=== PATIENT | male | born 1975 | race African-American/Black ===

== ENCOUNTER 2020-10-24 22:14 | Inpatient (IN) | payer MEDICAID, SELFPAY ==
--- NOTE | ~2020-10-24 | XR_ITS ---
EXAMINATION: XR foot LT min 3V DATE: 10/24/2020 22:34 INDICATION: Left foot pain and swelling. TECHNIQUE: 4 views of left foot were obtained. COMPARISON: Left ankle radiographs 02/19/2006 FINDINGS: Bone alignment is normal. No fracture. There is mild osteoarthritis of first metatarsophala ngeal joint and some of the midfoot joints. There are enthesophytes at the posterior and plantar aspe cts of calcaneal tuberosity. IMPRESSION: 1. Mild polyarticular osteoarthritis. Reviewed, dictated and finalized at location A.
--- NOTE | ~2020-10-24 | US_ITS ---
EXAMINATION: US retroperitoneal duplex ltd DATE: 10/27/2020 08:34 INDICATION: Hypertensive urgency. TECHNIQUE: Multiple grayscale, color Doppler, and pulsed Doppler images of the kidneys and renal krystle asa were obtained. COMPARISON: None. FINDINGS: The aorta peak systolic velocity is 91 cm/s. The right renal artery peak systolic velocity is 32 cm/s in the proximal segment, 45 cm/s in the mid segment, and 31 cm/s in the distal segment. The left vikram al artery peak systolic velocity is 89 cm/s in the proximal segment, 73 cm/s in the mid segment, and 23 cm/s in the distal segment. IMPRESSION: 1. No Doppler evidence of renal artery stenosis. Reviewed, dictated and finalized at location A.
--- NOTE | ~2020-10-24 | US_ITS ---
EXAMINATION: US renal BI EXAM DATE: 10/25/2020 14:24 INDICATION: Renal failure. TECHNIQUE: Multiple grayscale and Doppler images of the kidneys were obtained (by a technologist who performed the scan) and subsequently reviewed. There is no prior study for comparison. FINDINGS: Right kidney: There is normal contour and mildly increased echogenicity. It measures 8.9 x 4.4 x 4.9 centimeters. There are no focal renal lesions identified. There is no hydronephrosis. Left kidney: There is normal contour and mildly increased echogenicity. It measures 9.7 x 5.1 x 4.3 centimeters. Complex cystic mass in lower pole of the left kidney, possible renal cell cancer measuri ng 1.6 x 1.6 x 1.2 cm. Another complex cystic mass suspected in the superior pole of the kidney measu ring 2.5 x 2.2 x 2 point There is no hydronephrosis. Bladder unremarkable. Both ureteral jets were confirmed. IMPRESSION: 1. Two complex cystic left renal masses suspicious for renal cell cancer. Recommend CT without contr ast (given patient's renal failure). 2. Mildly increased renal echogenicity, medical renal disease. 3. No hydronephrosis. Reviewed, dictated and finalized at location A. IMPRESSION: 1. Two complex cystic left renal masses suspicious for renal cell cancer. Alec mmend CT without contrast (given patient's renal failure). 2. Mildly increased renal echogenicity, medical renal disease. 3. No hydronephrosis.
--- NOTE | ~2020-10-24 | MR_ITS ---
EXAMINATION: MR abdomen wo con DATE: 10/26/2020 09:58 INDICATION: Left kidney mass. TECHNIQUE: Magnetic resonance imaging (MRI) of the abdomen was performed without intravenous contrast . Sequences included coronal T2-weighted FS FSE, coronal and axial FIESTA FS, coronal LAVA-flex, axia l LAVA, axial T2-weighted FSE, axial T1-weighted dual-echo FSPGR, axial STIR FSE, and axial DWI. COMPARISON: Ultrasound 10/25/2020 FINDINGS: There is left ventricular hypertrophy of the heart. Cardiomegaly is noted. The liver, spleen, gallbla dder, pancreas, and adrenal glands are normal. There is a supraumbilical ventral hernia containing fa t. There are multiple masses in each kidney measuring up to 2.6 cm on the left. No hydronephrosis. Th ere are no dilated loops of bowel. There are no pathologically enlarged lymph nodes. There is no free intraperitoneal fluid. IMPRESSION: 1. Bilateral kidney masses measuring up to 2.6 cm on the left, which may be hemorrhagic cysts and/or neoplasm(s). Abdomen CT without and with contrast is recommended. 2. Cardiomegaly with left ventricular hypertrophy. Reviewed, dictated and finalized at location A. IMPRESSION: 1. Bilateral kidney masses measuring up to 2.6 cm on the left, which may be hem orrhagic cysts and/or neoplasm(s). Abdomen CT without and with contrast is ruthann mmended. 2. Cardiomegaly with left ventricular hypertrophy.
--- NOTE | ~2020-10-24 | XR_ITS ---
EXAMINATION: XR chest 2V DATE: 10/24/2020 23:02 INDICATION: Cough and shortness of breath. TECHNIQUE: Frontal and lateral views of the chest were obtained on 3 radiographs. COMPARISON: Chest 2 views 07/02/2009 FINDINGS: There is mild atelectasis in the mid and lower lung zones. No pleural effusion or pneumotho rax. Cardiomegaly is noted. IMPRESSION: 1. Mild atelectasis in the mid and lower lung zones. 2. Cardiomegaly. Reviewed, dictated and finalized at location A.
[2020-10-24 22:16] VITALS: BP 256/159; PULSE 99; RESP 18; TEMP 36.4; O2SAT 100
[2020-10-24 22:44] VITALS: BP 260/180
--- NOTE | 2020-10-24 22:46 | ECG_ITS ---
Measurements Intervals [place] Rate: 93 P: 65 VT: 170 QRS: -24 QRSD: 124 T: 144 QT: 395 QTc: 492 Interpretive Statements SINUS RHYTHM LEFT ATRIAL ENLARGEMENT INTRAVENTRICULAR CONDUCTION DELAY LEFT VENTRICULAR HYPERTROPHY AND ST-T CHANGE BORDERLINE R WAVE PROGRESSION, ANTERIOR LEADS BASELINE ARTIFACT- V1, V3-V6 BORDERLINE ECG Electronically Signed On 10-25-2020 6:19:55 CDT by Ford Reis D.O.
[2020-10-24] MEDS: SODIUM CHLORIDE 0.9% IV 1,000 ML 150 ML IV CONT (23:15)
[2020-10-24 23:37] LABS: Basophils Percent Auto 0.6 % (0.2-1.2); Eosinophils Absolute Auto 0.1 K/mm3 (0-0.3); Hematocrit 39.9 % (42.0-52.0); Hemoglobin 13.5 g/dL (14.0-18.0); Immature Granulocyte Absolute 0.01 K/mm3 (0.00-0.031); Immature Granulocyte Percent A 0.1 % (0-0.5); Lymphocytes Absolute Auto 2.26 K/mm3 (0.9-3.2); Lymphocytes Percent Auto 31.7 % (18.3-44.2); Mean Corpuscular HGB Conc 33.8 g/dl (32-36); Mean Corpuscular Hemoglobin 30.1 pg (26-34); Mean Corpuscular Volume 89.1 fl (80-100); Mean Platelet Volume 11.7 fl (7.4-10.4); Monocytes Absolute Auto 0.4 K/mm3 (0.1-0.6); Monocytes Percent Auto 5.5 % (2.6-8.5); Neutrophils Absolute Auto 4.3 K/mm3 (1.3-6.7); Neutrophils Percent Auto 60.1 % (45.5-73.1); Platelet Count Result 223 k/mm3 (150-375); Red Blood Count 4.48 M/mm3 (4.6-6.20); Red Cell Distribution Width 14.7 % (11.5-14.5); White Blood Count 7.1 K/mm3 (4.5-10.0)
[2020-10-24] MEDS: LABETALOL HCL INJ 100 MG/20 ML VIAL 20 MG IV PUSH (23:54)
[2020-10-24 23:55] VITALS: BP 246/173; PULSE 89; RESP 25; O2SAT 98
[2020-10-25] VITALS (19 sets, daily range): BP systolic 183–213; BP diastolic 102–145; PULSE 63–91; RESP 15–23; TEMP 36.3–37.2; O2SAT 97–100; BMI 27.3
--- NOTE | 2020-10-25 | ECHO_ITS ---
Patient Info Name: Jason Whiteside Age: 45 years : 1975 Gender: Male Ht: 73 in Wt: 245 lbs BSA: 2.42 m2 HR: 67 bpm BP: 204 / 120 mmHg Heart Rhythm: Sinus Rhythm Technical Quality: Good Exam Date: 10/25/2020 10:54 AM Exam Location: [facility] Card Pulmonary Patient Status: Emergency Admit Date: 10/24/2020 Staff Ordering Physician: Keith Anderson MD Office Rn: Kay Hernadez RDCS Attending Provider: Remy Shaver MD Referring Physician: Justin CORREIA; Exam Type: CA echo doppler color flow Study Info Indications I10 - Essential (primary) hypertension Complete two-dimensional, color flow and Doppler transthoracic echocardiogram is performed. Summary 1. Complete two-dimensional, color flow and Doppler transthoracic echocardiogram is performed. 2. Left ventricular chamber dimension is moderately enlarged. 3. Left ventricular systolic function is moderately reduced, estimated at 40-45%. 4. There is moderately increased left ventricular wall thickness. 5. The left ventricular diastolic function is grade III diastolic dysfunction. 6. Left atrial chamber dimension is severely enlarged. 7. Right atrial chamber dimension is moderately enlarged. 8. Mild pulmonary hypertension, estimated pulmonary arterial systolic pressure is 42 mmHg. Left Ventricle Left ventricular chamber dimension is moderately enlarged. Left ventricular systolic function is moderately reduced, estimated at 40-45%. There is moderately increased left ventricular wall thickness. The left ventricular diastolic function is grade III diastolic dysfunction. Global longitudinal strain is moderately elevated at -7 %. Right Ventricle Right ventricular chamber dimension is normal. Right ventricular systolic function is normal. Left Atria Left atrial chamber dimension is severely enlarged. Right Atria Right atrial chamber dimension is moderately enlarged. Aortic Valve The aortic valve is trileaflet. There is no aortic valve stenosis. There is no aortic valve regurgitation. Pulmonic Valve The pulmonic valve is normal. There is mild pulmonic regurgitation. Mitral Valve The mitral valve has normal leaflets. There is mild mitral valve regurgitation. Tricuspid Valve The tricuspid valve leaflets are normal. There is mild tricuspid valve regurgitation. Mild pulmonary hypertension, estimated pulmonary arterial systolic pressure is 42 mmHg. Pericardium/Pleural The pericardium appears normal. There is trivial pericardial effusion. Inferior Vena Cava Normal inferior vena cava with >50% collapse upon inspiration consistent with normal right atrial pressure, 5 mmHg. Aorta The aortic root size at the sinus of Valsalva is normal. Left Ventricular Outflow Tract Name Value Normal LVOT 2D LVOT Diameter 2.3 cm LVOT Doppler LVOT Peak Velocity 115 cm/s LVOT Peak Gradient 5 mmHg LVOT Mean Gradient 3 mmHg LVOT VTI 21 cm LVOT VTI/AV VTI Ratio 0.9 LVOT Stroke Volume
[2020-10-25] MEDS: HYDROcodone/acetaminophen (*CRX) 5-325 MG TABLET 1 TAB PO ×3 (00:01→08:24)
[2020-10-25 00:05] LABS: Alanine Aminotransferase 25 U/L (4-50); Albumin Level 4.1 g/dL (3.5-5.1); Alkaline Phosphatase 98 U/L (38-126); Anion Gap 6 mmol/L (8-16); Aspartate Amino Transferase 31 U/L (17-59); Bilirubin,Total 0.5 mg/dL (0.2-1.3); Blood Urea Nitrogen 35 mg/dL (9-20); Calcium 9.3 mg/dL (8.4-10.2); Carbon Dioxide 21 mmol/L (22-30); Chloride 112 mmol/L (98-107); Estimated Glomerular Filt Rate 27; Glucose 118 mg/dL (75-110); Potassium 4.2 mmol/L (3.4-5.0); Sodium 139 mmol/L (137-145)
--- NOTE | 2020-10-25 00:05 | ED.LOWEXIN ---
HPI - Extremity Injury (Lower) General Chief Complaint: Extremity Injury, Lower Stated Complaint: left foot swelling and pain Time Seen by Provider: 10/24/20 22:42 Source: patient Mode of arrival: ambulatory Limitations: no limitations History of Present Illness HPI Narrative: 45-year-old male Presents complaining of severe pain in his left big toe which began yesterday No history of injury and no prior similar episodes Extremely painful to try to walk Incidentally noticed at triage was a blood pressure of 260/160 On review of the chart there is a long history going back 10+ years of numerous visits to the ED for issues related to hypertension However he has not been very compulsive about following up with primary care and treating his blood pressure and currently takes no medications Remarkably he is completely asymptomatic and denies any headaches visual symptoms chest pain shortness of breath weakness swelling etc. Related Data Home Medications Medication Instructions Recorded Confirmed No Home Medications 10/24/20 10/24/20 Allergies Allergy/AdvReac Type Severity Reaction Status Date / Time No Known Allergies Allergy Verified 10/24/20 22:21 Review of Systems Review of Systems: All systems reviewed & are unremarkable except as noted in HPI and below Constitutional: Constitutional: Reports no additional constitutional complaints, Denies chills, Denies fever(s) and Denies headache(s) Eyes: Eyes: Reports no additional eye complaints and Denies change in vision ENT: Denies dysphagia, Denies dizziness, Denies headache(s) and Denies sore throat Cardiovascular: Cardiovascular: Denies chest pain and Denies dyspnea Respiratory: Respiratory: Denies cough and Denies dyspnea Gastrointestinal: Gastrointestinal: Denies abdominal pain, Denies diarrhea, Denies nausea and Denies vomiting Genitourinary: Genitourinary: Denies dysuria and Denies urinary frequency Musculoskeletal: Musculoskeletal: Denies deformity, Reports arthralgias, Reports joint swelling and Denies numbness Integumentary/Breasts: Skin/Breast: Denies rash and Denies wounds Neurologic: Denies headache(s), Denies focal weakness and Denies numbness Psychiatric: Psychiatric: Reports no additional psychiatric complaints Endocrine: Endocrine: Reports no additional endocrine complaints Hematologic/Lymphatic: Hematologic/Lymphatic: Reports no additional hematologic/lymphatic complaints Allergic/Immunologic: Allergic/Immunologic: Reports no additional allergic/immunologic complaints Exam Const: General: cooperative, no acute distress and alert Orientation/consciousness: patient oriented x3 (alert) HENMT: Head: normal to inspection, normocephalic, atraumatic, no contusions and no hematomas Ears: external ears normal General nose exam: no epistaxis Eyes: Conjunctivae: conjunctivae normal Pupils: Equal, round and reactive pupils present EOM: EOMs intact bilaterally Neck: Neck: normal visual inspection, no meningeal signs, supple and no JVD Other: Supple Resp: Effort & Inspection: normal respiratory effort and not labored Auscultation: clear to auscultation bilaterally and other (BS =) Cardio: Rate: regular rate Rhythm: regular rhythm Heart sounds: no murmurs GI: GI Palp: Yes Soft to palpation and No Tenderness to palpation present (GI) Skin: General skin exam: normal color and no rashes or lesions noted Neuro: General: patient oriented x3 (alert) and moves all extremities Speech: normal speech Extrem: Other: Left first MTP swollen, erythematous, tender, consistent with gout Psych: Affect: normal affect Course Course Emergency Course: His extreme hypertension will have to be slowly corrected and he received labetalol twice with resulting systolic blood pressures in the 200-220 range His gouty toe felt better after [place] and steroids Discussed with hospitalist for admission Vital Signs Vital signs: Vital Signs Temperature
[2020-10-25 00:13] LABS: NT Pro B Type Natriuretic Pept 9450 pg/mL (5-100)
[2020-10-25 00:14] LABS: Uric Acid 8.6 mg/dL (3.5-8.5)
--- NOTE | 2020-10-25 00:38 | PM.IMHP ---
H&P: HPI History of Present Illness Date/Time: 10/25/20 00:38 Chief Complaint: LEFT TOE PAIN Narrative: THIS IS A 45-YEAR-OLD MALE WITH PAST MEDICAL HISTORY SIGNIFICANT FOR UNCONTROLLED MALIGNANT HYPERTENSION PATIENT IS ON NO TREATMENT AT HOME HISTORY OF NONCOMPLIANCE. PATIENT PRESENTED TODAY TO THE EMERGENCY ROOM DUE TO LEFT TOE PAIN AT THE LEVEL OF THE 1ST METATARSAL PHALANGEAL JOINT PATIENT STATES THAT IT HAS BEEN THERE FOR 1 DAY IS EXTREMELY PAINFUL TO THE TOUCH. PATIENT DENIES ANY DISCHARGE ANY OPEN WOUNDS. PATIENT WAS FOUND TO HAVE A SYSTOLIC BLOOD PRESSURE OF 260 OVER 180. PATIENT DENIES ANY CHEST PAIN SHORTNESS OF BREATH HEADACHES OR BLURRY VISION NAUSEA VOMITING ABDOMINAL PAIN NO FEVERS NO RIGORS NO CHILLS NO COUGH NO SPUTUM PRODUCTION NO PND NO ORTHOPNEA NO CLAUDICATION. PRELIMINARY WORKUP WAS SIGNIFICANT FOR FOOT X-RAY NO FRACTURES. A CHEST X-RAY WITH PROMINENT AORTIC NOTCH. PATIENT RECEIVED LABETALOL IN THE EMERGENCY ROOM WITH A SLIGHT IMPROVEMENT OF HIS BLOOD PRESSURE. Review of Systems Review of Systems: Narrative: PATIENT PRESENTED TO THE EMERGENCY ROOM DUE TO TENDERNESS OF THE FAIRS METATARSAL PHALANGEAL JOINT OF THE LEFT FOOT Constitutional: Constitutional: Denies chills, Denies fatigue, Denies fever(s), Denies malaise and Denies weakness Eyes: Eyes: Denies blurry vision and Denies diplopia ENT: Denies vertigo, Denies dizziness, Denies nasal congestion and Denies nasal discharge Cardiovascular: Cardiovascular: Denies chest pain, Denies edema, Denies irregular heart rhythm, Denies claudication, Denies leg edema and Denies palpitations Respiratory: Respiratory: Denies cough and Denies dyspnea Gastrointestinal: Gastrointestinal: Denies abdominal pain and Denies vomiting Genitourinary: Genitourinary: Denies dysuria Musculoskeletal: Musculoskeletal: Reports arthralgias, Reports joint swelling and Reports limited range of motion Comments: 1ST METATARSAL PHALANGEAL JOINT OF THE LEFT FOOT Integumentary/Breasts: Skin/Breast: Denies rash Neurologic: Denies vertigo, Denies dizziness, Denies focal weakness, Denies Other visual disturbances and Denies Sensory deficit (Neuro) Psychiatric: Psychiatric: Denies no additional psychiatric complaints Endocrine: Endocrine: Reports no additional endocrine complaints Hematologic/Lymphatic: Hematologic/Lymphatic: Reports no additional hematologic/lymphatic complaints Allergic/Immunologic: Allergic/Immunologic: Reports no additional allergic/immunologic complaints Meds Home Medications and Allergies Home Medications Medication Instructions Recorded Confirmed Type No Home Medications 10/24/20 10/24/20 History Allergies Allergy/AdvReac Type Severity Reaction Status Date / Time No Known Allergies Allergy Verified 10/24/20 22:21 Vital Signs Vital Signs - 24 hr 10/24/20 22:16 10/24/20 22:44 10/24/20 23:55 Temperature 97.5 F L Pulse Rate 99 89 Respiratory Rate 18 25 H Blood Pressure 256/159 H 260/180 H 246/173 H Pulse Oximetry 100 98 Exam Narrative: Exam Narrative: SITTING IN [facility] [place] Const: General: comfortable, no acute distress, well developed, alert, awake and Physically active Nutritional Appearance: average body habitus Orientation/consciousness: patient oriented x3 HENMT: Head: normal to inspection, normocephalic and atraumatic Ears: hearing grossly normal bilaterally Face and sinus: normal facial exam Eyes: General: appearance normal, both eyes and all related structures Pupils: Equal, round and reactive pupils present EOM: EOMs intact bilaterally Neck: Neck: full ROM, no lymphadenopathy and no JVD Thyroid: thyroid normal Lymphatic: no lymphadenopathy noted Resp: Effort & Inspection: normal respiratory effort and able to speak in complete sentences Auscultation: clear to auscultation bilaterally Cardio: Jugular venous distension: no JVD Rate: regular rate Rhythm: regular rhythm Heart sounds: S1 normal heart sound present and S2
[2020-10-25] MEDS: LABETALOL HCL INJ 100 MG/20 ML VIAL 40 MG IV PUSH (00:51)
--- NOTE | 2020-10-25 01:15 | PC.NURSE ---
Pt unable to provide urine sample, states I've been trying for a while, but I cant go . Pt refused straight catheter, urinal at bedside.
[2020-10-25 01:55] LABS: Add Urine Microscopic? YES; Appearance Urine Clear (Clear); Bacteria Urine Trace /hpf; Bilirubin Urine Negative (Negative); Blood Urine Negative (Negative); Color Urine Yellow (Yellow); Glucose Urine UA Negative (Negative); Ketones Urine Negative (Negative); Leukocyte Esterase Ur Trace LEU/UL (Negative); Nitrate Urine Negative (Negative); Protein Urine 3+ mg/dL (Negative); RBC Urine 0-2 /hpf (0-2); Specific Grav Ur 1.014 (1.001-1.035); Squamous Epithelial Cell Urine Rare /hpf (Few); Urobilinogen Urine Negative mg/dL (<2.0); WBC Urine 16-20 /hpf
[2020-10-25] MEDS: hydrALAZINE HCL 20 MG/ML VIAL IV PUSH ×2 (02:21→23:30)
--- NOTE | 2020-10-25 06:27 | ADMGEN ---
This patient, Jason Whiteside III, was admitted to IMU Room 200-01. Patient/family oriented to hospital policies and general routines including ID bracelet, bed and alarms, visiting hours, pain management, procedures, bathroom and other care routines, personal items, smoking policy, room service/diet, and visiting hours. Information on how to activate the Rapid Response Team has been discussed. Patient/Family are encouraged to report perceived risks to care and to ask questions if they do not understand what they are told or what they should do.
[2020-10-25 09:26] LABS: Anion Gap 7 mmol/L (8-16); Blood Urea Nitrogen 32 mg/dL (9-20); Calcium 9.6 mg/dL (8.4-10.2); Carbon Dioxide 19 mmol/L (22-30); Chloride 112 mmol/L (98-107); Estimated CRCL calculation 36 ml/min; Estimated Glomerular Filt Rate 31; Glucose 134 mg/dL (75-110); Potassium 4.2 mmol/L (3.4-5.0); Sodium 138 mmol/L (137-145)
[2020-10-25] MEDS: predniSONE 20 MG TABLET 40 MG PO (09:43)
[2020-10-25] MEDS: amLODIPine BESYLATE 5 MG TABLET PO ×2 (09:43→16:59)
--- NOTE | 2020-10-25 11:04 | PM.IMPN ---
Progress Note: A&P Assessment and Plan (1) Hypertensive urgency, malignant: Code(s): I16.0 - Hypertensive urgency Status: Acute Assessment and Plan: He has not been on antihypertensives in many years. He is asymptomatic at this time. No evidence of end-organ dysfunction. BP as high as 260/180 at presentation. Improved at appropriate rate following labetalol administration. Last BP 186/102. Begin amlodipine 5 mg. Up titrate based on results IV hydralazine as needed for systolic BP greater than or equal to 200. Monitor blood pressure closely with cautious normalization (2) Acute on chronic kidney failure: Code(s): N17.9 - Acute kidney failure, unspecified; N18.9 - Chronic kidney disease, unspecified Status: Acute Assessment and Plan: Reports history of kidney disease but cannot recall specifics. Baseline renal function is unclear. Creatinine 3.1 at presentation. Likely secondary to uncontrolled hypertension. Renal ultrasound ordered with results pending Nephrology has been consulted and input is appreciated. Monitor renal function closely. Renally dose medications and avoid nephrotoxic agents. (3) Gout: Code(s): M10.9 - Gout, unspecified Status: Acute Assessment and Plan: Left 2nd toe. Uric acid elevated at 8.6. Received IV dexamethasone in ED. Begin 40 mg prednisone taper over 1 week. Analgesics available as needed Plan to initiate uric acid lowering agent following acute flare (4) Elevated brain natriuretic peptide (BNP) level: Code(s): R79.89 - Other specified abnormal findings of blood chemistry Status: Acute Assessment and Plan: BNP elevated at 9450. Cardiomegaly noted on CXR. He is asymptomatic. Echocardiogram ordered and is pending (5) Elevated fasting glucose: Code(s): R73.01 - Impaired fasting glucose Status: Acute Assessment and Plan: Glucose elevated at 134. He endorses polydipsia and polyuria. He has not had his blood sugar checked in many years. Check A1c (6) Abnormal urinalysis: Code(s): R82.90 - Unspecified abnormal findings in urine Status: Acute Assessment and Plan: UA at presentation was slightly abnormal. He is asymptomatic. No leukocytosis or fever. Doubt acute infection. Urine culture pending. Await results Will hold off on antibiotics until results available Subjective Date/time seen: 10/25/20 11:04 Interval history: Date of service: 10/25/2020 Jason Whiteside is a 45-year-old male with history of untreated hypertension who is seen in follow-up for hypertensive urgency and gout flare. He reports he is feeling better today. His complain of pain in his left 2nd toe that he rates as 6/10. Pain is at first sharp and then throbs. He notes that this has improved since admission. He has difficulty bearing weight on that foot, and notes that his left foot seems a bit swollen compared to his right foot. He denies nausea, vomiting, fever, or chills. He has no headache. No visual changes. No shortness of breath, chest pain, or palpitations. Denies abdominal pain. He denies dysuria or hematuria. He does note that he urinates very frequently and often wakes up in the middle of the night to urinate. He also endorses polydipsia. No lightheadedness or dizziness. He has been able to ambulate without difficulty with the exception of some left foot pain. Review of Systems Review of Systems: All systems reviewed & are unremarkable except as noted in HPI and below Exam Narrative: Exam Narrative: Mr. Whiteside is well-nourished, well-appearing 45-year-old male who is lying supine in bed. He appears comfortable and is in NARD. Neuro: awake, alert and oriented x4, speech clear, no focal neuro deficits noted HEENMT: normocephalic, atraumatic, EOMI, sclerae anicteric, moist oral mucosa, tongue midline, nares patent Neck: supple, no lymphadenopathy
[2020-10-25 11:54] LABS: Hemoglobin A1C 5.3 % (<5.7)
--- NOTE | 2020-10-25 16:11 | PM.CNNEP ---
Assessment and Plan Assessment and plan (1) Abnormal results of kidney function studies: Code(s): R94.4 - Abnormal results of kidney function studies Status: Acute Assessment and Plan: the patient has a high BUN and creatinine. He could have Different scenarios. He has had hypertension for a few years. His ultrasound does show small kidneys and some echogenicity. So I suspect that he does have chronic kidney disease on the basis of hypertension. There are other causes of elevated creatinine as well including inflammation, infiltrative diseases, obstruction etc. He had an ultrasound which did not show obstruction. Will check serology and immunofixation to rule out other less likely causes of kidney disease. The patient may or may not have superimposed acute kidney injury. He could have acute hypertensive nephropathy from his severely high blood pressure. If so then bring his blood pressure down may result in a lower creatinine eventually. I do not want to bring it down too low because he probably does have some this auto regulation and too low a blood pressure might result in a pre renal state worsening his creatinine. (2) Hypertensive urgency, malignant: Code(s): I16.0 - Hypertensive urgency Status: Acute Assessment and Plan: the patient had very high blood pressure in the ER. This has come down some. He is currently on amlodipine and p.r.n. hydralazine. He was given labetalol as well in the emergency room. Will add carvedilol as well. (3) Gout: Code(s): M10.9 - Gout, unspecified Status: Acute Assessment and Plan: He is getting prednisone now. His uric acid is very high. (4) Elevated fasting glucose: Code(s): R73.01 - Impaired fasting glucose Status: Acute Assessment and Plan: His glucose is high. This was before he started the steroids. History of Present Illness Reason for Consult Consult date: 10/25/20 Chief Complaint Chief complaint: severe HTN, CKD, Gout History of Present Illness Narrative: Jason is a very pleasant 45-year-old gentleman who has hypertension. He says he was diagnosed somewhere between 5 and [address] Pablo. He was given antihypertensives. The patient did not feel good on the medication so he stopped the pills and has not been on any medicines for the last few years. He has not had his blood pressure taken since then. Patient says he came down with left foot pain a couple of days ago. He took Tylenol for this but it did not help in his foot became more so decided to come to the emergency room. He was evaluated in the ER and found to have a very high blood pressure. His creatinine was high. He was given antihypertensives. He was admitted to the floor. The patient denies any chest pain or shortness of breath. He has been tired for the last few weeks. He has not had any bloody urine, foamy urine, kidney stones, or bladder infections. No pain with urination. He has not been taking any Advil Aleve ibuprofen or Motrin lately. He says he takes an occasional pill but has not had 1 in a few weeks. He smokes cigarettes and rarely drinks. Review of Systems Constitutional: Constitutional: Reports no additional constitutional complaints Eyes: Eyes: Reports no additional eye complaints ENT: Reports system reviewed and no additional complaints, except as documented Cardiovascular: Cardiovascular: Reports no additional cardiovascular complaints Respiratory: Respiratory: Reports no additional respiratory complaints Gastrointestinal: Gastrointestinal: Reports no additional gastrointestinal complaints Genitourinary: Genitourinary: Reports no additional male genitourinary complaints Musculoskeletal: Musculoskeletal: Reports no additional musculoskeletal complaints Integumentary/Breasts: Skin/Breast: Reports system reviewed and no additional complaints, except as docu Neurologic
[2020-10-25 16:46] LABS: Creatine Kinase 62 U/L (55-170)
[2020-10-25 16:54] LABS: Complement C3 109 mg/dL (88-165)
[2020-10-25 18:09] LABS: Eosinophil Urine None Seen % (None Seen)
[2020-10-25 19:06] LABS: Creatinine Urine 109.9 mg/dL; Total Protein Urine Random 81 mg/dL; Ur Ttl Prot Creatinine Ratio 0.74 mg/mg (0-0.20)
[2020-10-25 19:07] LABS: Sodium Urine Random 53 meq/L
[2020-10-25 19:11] LABS: Creatinine Urine 112.3 mg/dL
[2020-10-25 19:13] LABS: Sodium Urine Random 54 meq/L
[2020-10-25] MEDS: carvediloL 12.5 MG TABLET PO (19:55)
[2020-10-26] VITALS (16 sets, daily range): BP systolic 160–210; BP diastolic 93–117; PULSE 62–89; RESP 12–20; TEMP 36.6–36.9; O2SAT 95–100
[2020-10-26 05:19] LABS: Hematocrit 35.9 % (42.0-52.0); Hemoglobin 12.6 g/dL (14.0-18.0); Mean Corpuscular HGB Conc 35.1 g/dl (32-36); Mean Corpuscular Hemoglobin 30.1 pg (26-34); Mean Corpuscular Volume 85.9 fl (80-100); Mean Platelet Volume 11.7 fl (7.4-10.4); Platelet Count Result 211 k/mm3 (150-375); Red Blood Count 4.18 M/mm3 (4.6-6.20); Red Cell Distribution Width 14.2 % (11.5-14.5); White Blood Count 9.8 K/mm3 (4.5-10.0)
[2020-10-26 05:32] LABS: Albumin Level 3.6 g/dL (3.5-5.1); Anion Gap 6 mmol/L (8-16); Blood Urea Nitrogen 32 mg/dL (9-20); Calcium 9.3 mg/dL (8.4-10.2); Carbon Dioxide 20 mmol/L (22-30); Chloride 110 mmol/L (98-107); Estimated CRCL calculation 39 ml/min; Estimated Glomerular Filt Rate 34; Glucose 113 mg/dL (75-110); Phosphorus 3.3 mg/dL (2.5-4.5); Potassium 4.3 mmol/L (3.4-5.0); Sodium 136 mmol/L (137-145)
[2020-10-26] MEDS: hydrALAZINE HCL 20 MG/ML VIAL IV PUSH (06:31)
[2020-10-26] MEDS: cloNIDine HCL 0.1 MG TABLET PO ×3 (06:31→17:46)
--- NOTE | 2020-10-26 07:19 | PM.PNNEP ---
Progress Note: A&P Assessment and Plan (1) Abnormal results of kidney function studies: Code(s): R94.4 - Abnormal results of kidney function studies Status: Acute Assessment and Plan: the patient has a high BUN and creatinine. Acute versus chronic versus acute on chronic. He probably has some chronic kidney disease. Renal ultrasound shows smallish kidneys and increased echogenicity consistent with this. Serology is pending (c3,c4 okay) Immunofixation are pending Etiology most likely hypertension. He may have acute on chronic as well. Urine eosinophils are negative. Urine electrolytes are non pre renal CPK is normal Will follow the creatinine as we improve his blood pressure. (2) Hypertensive urgency, malignant: Code(s): I16.0 - Hypertensive urgency Status: Acute Assessment and Plan: the patient had very high blood pressure in the ER. This has come down some. He is on amlodipine and carvedilol. His blood pressure was high again this morning. He had a dose of hydralazine for this high blood pressure but did not do much. Will change amlodipine to nifedipine which is stronger. Will also add clonidine. We should not mix clonidine and beta-blockers as an outpatient because of risk of withdrawal however in the hospital will use the clonidine as a temporizing agent into we get him on a better long-term regimen for blood pressure. Will check a TSH, parathyroid hormone, renin, and aldosterone. We can also check a renal arterial Doppler. (3) Gout: Code(s): M10.9 - Gout, unspecified Status: Acute Assessment and Plan: He is getting prednisone now. He feels much better. Will start allopurinol. His uric acid is very high. (4) Elevated fasting glucose: Code(s): R73.01 - Impaired fasting glucose Status: Acute Assessment and Plan: His glucose is high. This was before he started the steroids. Subjective Date/time seen: 10/26/20 07:19 Interval history: Jason is feeling okay today. He slept well last night. He denies chest pain shortness of breath or headache. Review of Systems Cardiovascular: Cardiovascular: Reports no additional cardiovascular complaints Respiratory: Respiratory: Reports no additional respiratory complaints Gastrointestinal: Gastrointestinal: Reports no additional gastrointestinal complaints Genitourinary: Genitourinary: Reports no additional male genitourinary complaints Exam Narrative: Exam Narrative: WDWN in NAD skin no rash head ncat lungs clear cor reg no rub abd BS+ nontender and soft ext no edema. Objective Data Vital Signs Vital Signs: Vital Signs - 24 hr 10/25/20 08:00 10/25/20 10:00 10/25/20 11:06 Temperature 36.6 C Pulse Rate 74 74 70 Respiratory Rate 16 18 Blood Pressure 186/102 H Pulse Oximetry 97 100 10/25/20 12:00 10/25/20 14:00 10/25/20 16:00 Temperature 37.2 C 36.3 C L Pulse Rate 77 72 73 Respiratory Rate 16 16 Blood Pressure 192/123 H 193/124 H Pulse Oximetry 99 99 10/25/20 18:00 10/25/20 19:47 10/25/20 19:55 Temperature 36.6 C Pulse Rate 63 81 83 Respiratory Rate 20 Blood Pressure 195/109 H Pulse Oximetry 98 10/25/20 20:00 10/25/20 22:00 10/25/20 23:29 Temperature 36.6 C Pulse Rate 65 91 86 Respiratory Rate 20 Blood Pressure 210/123 H Pulse Oximetry 98 10/26/20 00:00 10/26/20 02:00 10/26/20 04:00 Temperature 36.6 C Pulse Rate 89 77 86 Respiratory Rate 20 Blood Pressure 210/117 H Pulse Oximetry 97 10/26/20 06:00 Temperature Pulse Rate 79 Respiratory Rate Blood Pressure Pulse Oximetry Intake/Output Intake/Output: Intake & Output 10/23/20 10/24/20 10/25/20 10/26/20 23:59 23:59 23:59 23:59 Intake Total 880 350 Output Total 300 850 Balance 580 -500 Meds/Results Medications: Active Medications Generic Name Dose Route Start Last Admin Trade Name Freq PRN Reason S
[2020-10-26] MEDS: carvediloL 12.5 MG TABLET PO ×2 (08:25→20:17)
[2020-10-26] MEDS: NIFEdipine 30 MG TAB.ER.24 60 MG PO (08:25)
[2020-10-26] MEDS: predniSONE 20 MG TABLET 40 MG PO (08:26)
[2020-10-26 08:33] LABS: Parathyroid Intact 168.9 pg/mL (7.5-53.5)
[2020-10-26 09:30] LABS: Thyroid Stimulating Hormone Reflex 0.941 uIU/mL (0.465-4.68)
--- NOTE | 2020-10-26 11:39 | PM.IMPN ---
Progress Note: A&P Assessment and Plan (1) Hypertensive urgency, malignant: Code(s): I16.0 - Hypertensive urgency Status: Acute Assessment and Plan: He has not been on antihypertensives in many years. He is asymptomatic at this time. No evidence of end-organ dysfunction. BP as high as 260/180 at presentation. Improving at appropriate rate. Last BP 175/96. He has been started on carvedilol, nifedipine, and clonidine which will only be continued during his inpatient stay IV hydralazine as needed for systolic BP greater than or equal to 200. Will order renal duplex US arterial doppler Monitor blood pressure closely with cautious normalization (2) Acute on chronic kidney failure: Code(s): N17.9 - Acute kidney failure, unspecified; N18.9 - Chronic kidney disease, unspecified Status: Acute Assessment and Plan: Reports history of kidney disease but cannot recall specifics. Baseline renal function is unclear. Creatinine 3.1 at presentation. Likely secondary to uncontrolled hypertension. Renal US reviewed. Cr improved at 2.5 today Nephrology has been consulted and input is appreciated. Serology and immunofixation workup pending Monitor renal function closely. Renally dose medications and avoid nephrotoxic agents. (3) Bilateral renal cysts: Code(s): N28.1 - Cyst of kidney, acquired Status: Acute Assessment and Plan: Renal ultrasound with 2 complex cystic left renal masses concerning for renal cell cancer. Abdominal MRI showed bilateral kidney masses measuring up to 2.6 cm on left. Recommendation for follow-up CT without and with contrast; cannot receive contrast at this time given BETTIE Consult to Urology. Input appreciated (4) Gout: Code(s): M10.9 - Gout, unspecified Status: Acute Assessment and Plan: Left 2nd toe. Uric acid elevated at 8.6. Received IV dexamethasone in ED. Continue 40 mg prednisone taper over 1 week. Analgesics available as needed Plan to initiate uric acid lowering agent following acute flare (5) HFrEF (heart failure with reduced ejection fraction): Code(s): I50.20 - Unspecified systolic (congestive) heart failure Status: Acute Assessment and Plan: BNP elevated at 9450. Cardiomegaly noted on CXR and MRI. Echocardiogram with moderately reduced EF 40-45% with increased LV wall thickness and grade III diastolic dysfunction. He remains asymptomatic. Appears euvolemic at this time. Monitor clinically He has been started on carvedilol as above Would not initiate any diuretics, KELY/ARB at this time given BETTIE Case reviewed with on-call political scientist. At this time, it is appropriate to establish outpatient follow up with cardiology. Will consider cardiology consultation as an inpatient should he develop any acute symptoms. (6) Elevated fasting glucose: Code(s): R73.01 - Impaired fasting glucose Status: Acute Assessment and Plan: Glucose elevated at presentation, prior to receiving steroids, and he endorsed polydipsia and polyuria. A1c is 5.3. No further workup warranted. He is on steroids which may cause hyperglycemia, however short taper is planned. (7) Abnormal urinalysis: Code(s): R82.90 - Unspecified abnormal findings in urine Status: Acute Assessment and Plan: UA at presentation was slightly abnormal. He is asymptomatic. No leukocytosis or fever. Urine culture negative. No further intervention at this time. Subjective Date/time seen: 10/26/20 11:39 Interval history: Date of service: 10/26/2020 Jason Whiteside is a 45-year-old male with history of untreated hypertension who is seen in follow-up for hypertensive urgency and gout flare. He is feeling well today. His left toe pain has improved. He reports much less sensitivity. He still has pain with walking. He denies headache. No dizziness or lightheadedness. Denies shortness of sabi
--- NOTE | 2020-10-26 15:26 | WPDURCON ---
Assessment and Plan Assessment and plan (1) Bilateral renal cysts: Code(s): N28.1 - Cyst of kidney, acquired Status: Acute Assessment and Plan: Will need to evaluate further with a CT abdomen/pelvis with and without contrast if creatinine can normalize. Will watch labs over the next few days and order if creatinine decreases. I will discuss case with Dr. Landers to determine if an MRI with and without contrast will be helpful in identifying the masses. No further evaluation at this time, this poses no urgent risk to the patient and is not contributing to the elevated creatinine. Urology Consult Note HPI Date Seen: 10/26/20 Requesting Physician: Christa Orr PA-C Primary Care Provider: [employer] SALESPERSON PHYSICIAN Consult Narrative Narrative: Jason Whiteside III is a 45 year old male who presented initially to the ER on 10/25/2020 for acute onset of left great toe pain and unknown hypertension. He was admitted for evaluation of acute renal failure and hypertion as well as pain management for gout. Upon OPAL of his kidneys ordered by nephrology to rule out an obstruction causing his creatinine to be 2.5, incidentally they found 2 complex left renal masses suspicious for renal cell carcinoma without obstruction. A CT was then done without contrast to further evaluate since he cannot have contrast d/t the BETTIE, which noted them as cysts measuring up to 2.6cm in size, recommending further evaluation with contrast when possible. His WBC is 9.8, and he denies any history of urinary problems or hematuria. We were asked to evaluate the masses. Review of Systems Cardiovascular: Cardiovascular: Denies chest pain Respiratory: Respiratory: Reports no additional respiratory complaints Gastrointestinal: Gastrointestinal: Denies nausea and Denies vomiting Genitourinary: Genitourinary: Denies hematuria, Denies dysuria, Denies flank pain, Denies urinary frequency and Denies urinary hesitancy [facility] Past Medical History Medical History Abnormal results of kidney function studies Chronic kidney disease (CKD) Hypertension Family History Family History Mother Hypertension Social History Social History Smoking packs per day: 1 Smoking cigarettes per day: 20.0 Years smoked: 15 Smoking pack-years: 15.00 Smoking status: Current every day smoker Alcohol intake: never Substance use: never Gender identity (if verbalized by the patient): Male Sexual Orientation (if Verbalized by the Patient): Straight or Heterosexual Spiritual care concerns: No Meds Home Medications and Allergies Home Medications Medication Instructions Recorded Confirmed Type No Home Medications 10/24/20 10/24/20 History Allergies Allergy/AdvReac Type Severity Reaction Status Date / Time No Known Allergies Allergy Verified 10/24/20 22:21 Vital Signs Vital Signs - 24 hr 10/25/20 16:00 10/25/20 18:00 10/25/20 19:47 Temperature 97.4 F L 97.9 F Pulse Rate 73 63 81 Respiratory Rate 16 20 Blood Pressure 193/124 H 195/109 H Pulse Oximetry 99 98 10/25/20 19:55 10/25/20 20:00 10/25/20 22:00 Temperature Pulse Rate 83 65 91 Respiratory Rate Blood Pressure Pulse Oximetry 10/25/20 23:29 10/26/20 00:00 10/26/20 02:00 Temperature 97.9 F Pulse Rate 86 89 77 Respiratory Rate 20 Blood Pressure 210/123 H Pulse Oximetry 98 10/26/20 04:00 10/26/20 06:00 10/26/20 08:00 Temperature 97.9 F 97.9 F Pulse Rate 86 79 65 Respiratory Rate 20 12 Blood Pressure 210/117 H 186/95 H Pulse Oximetry 97 98 10/26/20 08:25 10/26/20 10:00 10/26/20 11:10 Temperature 98.3 F Pulse Rate 73 69 71 Respiratory Rate 12 Blood Pressure 175/96 H Pulse Oximetry 100 10/26/20 12:00 10/26/20 14:00 Temperature Pulse Rate 89 67 Respi
--- NOTE | 2020-10-26 20:11 | PC.NURSE ---
Jason Wihteside III was transferred from 2nd medial to 3rd med/ surg floor, room 301 @1945. Patient is oriented to room and resting in bed with call light within reach.
[2020-10-27] VITALS (9 sets, daily range): BP systolic 155–170; BP diastolic 99–110; PULSE 55–74; RESP 18–20; TEMP 36.6–36.9; O2SAT 90–100
[2020-10-27] MEDS: cloNIDine HCL 0.1 MG TABLET PO ×3 (00:21→20:52)
[2020-10-27 06:10] LABS: Hematocrit 36.3 % (42.0-52.0); Hemoglobin 12.6 g/dL (14.0-18.0)
[2020-10-27 06:20] LABS: Albumin Level 3.5 g/dL (3.5-5.1); Anion Gap 7 mmol/L (8-16); Blood Urea Nitrogen 32 mg/dL (9-20); Calcium 9.1 mg/dL (8.4-10.2); Carbon Dioxide 20 mmol/L (22-30); Chloride 108 mmol/L (98-107); Estimated CRCL calculation 44 ml/min; Estimated Glomerular Filt Rate 34; Glucose 96 mg/dL (75-110); Phosphorus 3.4 mg/dL (2.5-4.5); Potassium 4.3 mmol/L (3.4-5.0); Sodium 135 mmol/L (137-145)
[2020-10-27] MEDS: NIFEdipine 30 MG TAB.ER.24 60 MG PO (08:37)
[2020-10-27] MEDS: carvediloL 12.5 MG TABLET PO ×2 (08:37→20:52)
[2020-10-27] MEDS: predniSONE 20 MG TABLET 40 MG PO (08:37)
--- NOTE | 2020-10-27 09:57 | PM.PNNEP ---
Progress Note: A&P Assessment and Plan (1) Abnormal results of kidney function studies: Code(s): R94.4 - Abnormal results of kidney function studies Status: Acute Assessment and Plan: the patient has a high BUN and creatinine. He probably has some chronic kidney disease. Renal ultrasound shows smallish kidneys and increased echogenicity consistent with this. Serology is pending (c3,c4 okay) Immunofixation are pending Etiology most likely hypertension. He has acute on chronic as well. Urine eosinophils are negative. Urine electrolytes are non pre renal CPK is normal the creatinine has improved from 3.1-2.5. Will follow the creatinine as we improve his blood pressure. (2) Hypertensive urgency, malignant: Code(s): I16.0 - Hypertensive urgency Status: Acute Assessment and Plan: the patient had very high blood pressure in the ER. This has come down some. Blood pressure seems better in the 150s. He is on Carvedilol and nifedipine. He is also on clonidine temporarily. Will increase nifedipine to 90 and decrease clonidine. (3) Gout: Code(s): M10.9 - Gout, unspecified Status: Acute Assessment and Plan: He is getting prednisone now. He feels much better. Will start allopurinol 150. His uric acid is very high. (4) Elevated fasting glucose: Code(s): R73.01 - Impaired fasting glucose Status: Acute Assessment and Plan: His glucose is high. This was before he started the steroids. Subjective Date/time seen: 10/27/20 09:57 Interval history: Jason is feeling okay today. Resting comfortably in bed. Exam Narrative: Exam Narrative: WDWN in NAD skin no rash Or subcu nodules head ncat lungs clear cor reg no rub or gallop abd BS+ nontender and soft ext no edema. Objective Data Vital Signs Vital Signs: Vital Signs - 24 hr 10/26/20 10:00 10/26/20 11:10 10/26/20 12:00 Temperature 36.8 C Pulse Rate 69 71 89 Respiratory Rate 12 Blood Pressure 175/96 H Pulse Oximetry 100 10/26/20 14:00 10/26/20 16:00 10/26/20 19:33 Temperature 36.9 C 36.6 C Pulse Rate 67 74 65 Respiratory Rate 12 18 Blood Pressure 162/93 H 172/93 H Pulse Oximetry 100 99 10/26/20 19:54 10/26/20 20:00 10/26/20 20:17 Temperature 36.6 C Pulse Rate 73 83 80 Respiratory Rate 18 Blood Pressure 169/97 H Pulse Oximetry 100 10/26/20 21:20 10/27/20 00:00 10/27/20 04:00 Temperature 36.6 C Pulse Rate 77 74 55 L Respiratory Rate 18 Blood Pressure 160/103 H Pulse Oximetry 95 10/27/20 05:29 10/27/20 08:00 10/27/20 08:37 Temperature 36.9 C Pulse Rate 59 L 66 56 L Respiratory Rate 18 Blood Pressure 155/99 H Pulse Oximetry 90 Intake/Output Intake/Output: Intake & Output 10/24/20 10/25/20 10/26/20 10/27/20 23:59 23:59 23:59 23:59 Intake Total 880 1370 440 Output Total 300 1400 Balance 580 -30 440 Meds/Results Medications: Active Medications Generic Name Dose Route Start Last Admin Trade Name Freq PRN Reason Stop Dose Admin Acetaminophen 650 mg 10/25/20 01:02 Acetaminophen 325 Mg Tablet PO Q4H PRN Mild Pain (1-3) or Fever Hydrocodone Bitart/Acetaminophen 1 tab 10/25/20 01:02 10/25/20 08:24 Hydrocodone/Acetaminophen (*Crx) 5-325 Mg Tablet PO 1 tab Q4H PRN Administration Pain Rated 4-6 Carvedilol 12.5 mg 10/25/20 21:00 10/27/20 08:37 Carvedilol 12.5 Mg Tablet PO 12.5 mg Q12HR TOI Administration Clonidine HCl 0.1 mg 10/26/20 06:20 10/27/20 05:49 Clonidine Hcl 0.1 Mg Tablet PO 0.1 mg Q6HR TOI Administration Hydralazine HCl 20 mg 10/25/20 00:35 10/26/20 06:31 Hydralazine Hcl 20 Mg/Ml Vial IV PUSH 20 mg Q6H PRN Administration [id number] Nifedipine 60 mg 10/26/20 09:00 10/27/20 08:37 Nifedipine 30 Mg Tab.Er.24 PO 60 mg QAM TOI Administration Prednisone 40 mg 10/25/20 08:30 10/27/20 08:37
[2020-10-27] MEDS: allopurinoL 150 MG TABLET PO (10:38)
[2020-10-27] MEDS: NIFEdipine 30 MG TAB.ER.24 PO (10:38)
--- NOTE | 2020-10-27 11:23 | PM.IMPN ---
Progress Note: A&P Assessment and Plan (1) Hypertensive urgency, malignant: Code(s): I16.0 - Hypertensive urgency Status: Acute Assessment and Plan: History of untreated HTN, he has not been on antihypertensives in many years. He is asymptomatic. No evidence of end-organ dysfunction. BP as high as 260/180 at presentation. Renal duplex US with no evidence of renal artery stenosis. Improving at appropriate rate. Last BP 155/99 Continue carvedilol Nifedipine increased to 90 mg daily Continue clonidine, decreased to q12h. This will only be continued during inpatient stay. Appreciate nephrology consult IV hydralazine as needed for systolic BP greater than or equal to 200. Monitor blood pressure closely with cautious normalization (2) Acute on chronic kidney failure: Code(s): N17.9 - Acute kidney failure, unspecified; N18.9 - Chronic kidney disease, unspecified Status: Acute Assessment and Plan: Reports history of kidney disease but cannot recall specifics. Baseline renal function is unclear. Creatinine 3.1 at presentation. Likely secondary to uncontrolled hypertension. Renal US reviewed. Cr stable at 2.5 today Nephrology has been consulted and input is appreciated. Serology and immunofixation workup pending Monitor renal function closely. Renally dose medications and avoid nephrotoxic agents. (3) Bilateral renal cysts: Code(s): N28.1 - Cyst of kidney, acquired Status: Acute Assessment and Plan: Renal ultrasound with 2 complex cystic left renal masses concerning for renal cell cancer. Abdominal MRI showed bilateral kidney masses measuring up to 2.6 cm on left. Recommendation for follow-up CT without and with contrast; cannot receive contrast at this time given BETTIE Appreciate urology consultation (4) Gout: Code(s): M10.9 - Gout, unspecified Status: Acute Assessment and Plan: Left 2nd toe. Uric acid elevated at 8.6. Received IV dexamethasone in ED. Continue prednisone taper. Analgesics available as needed Allopurinol initiated (5) HFrEF (heart failure with reduced ejection fraction): Code(s): I50.20 - Unspecified systolic (congestive) heart failure Status: Acute Assessment and Plan: BNP elevated at 9450. Cardiomegaly noted on CXR and MRI. Echocardiogram with moderately reduced EF 40-45% with increased LV wall thickness and grade III diastolic dysfunction. He remains asymptomatic. Appears euvolemic at this time. Monitor clinically He has been started on carvedilol as above Would not initiate any diuretics, KELY/ARB at this time given BETTIE Case reviewed with on-call vocational trainer. At this time, it is appropriate to establish outpatient follow up with cardiology. Will consider cardiology consultation as an inpatient should he develop any acute symptoms. (6) Elevated fasting glucose: Code(s): R73.01 - Impaired fasting glucose Status: Acute Assessment and Plan: Glucose elevated at presentation, prior to receiving steroids, and he endorsed polydipsia and polyuria. A1c is 5.3. No further workup warranted. He is on steroids which may cause hyperglycemia, however short taper is planned. (7) Abnormal urinalysis: Code(s): R82.90 - Unspecified abnormal findings in urine Status: Acute Assessment and Plan: UA at presentation was slightly abnormal. He is asymptomatic. No leukocytosis or fever. Urine culture negative. No further intervention at this time. Subjective Date/time seen: 10/27/20 11:23 Interval history: Date of service: 10/27/2020 Jason Whiteside is a 45-year-old male with history of untreated hypertension who is seen in follow-up for hypertensive urgency and gout flare. He is feeling well today and has no issues. He denies headache, dizziness, lightheadedness, shortness of breath, or chest pain. His foot pain has essentially resolved and he just has
[2020-10-27 12:53] LABS: Complement Total CH50 >60 U/mL (31-60)
[2020-10-27 23:44] LABS: Kappa\\Lambda Light Chains 1.89 (0.26-1.65); Lambda Light Chain 32.2 mg/L (5.7-26.3)
[2020-10-28 05:53] VITALS: BP 192/142; PULSE 56; RESP 20; TEMP 36.4; O2SAT 100
[2020-10-28 06:29] LABS: Hematocrit 37.3 % (42.0-52.0); Hemoglobin 13.1 g/dL (14.0-18.0)
[2020-10-28 06:45] LABS: Anion Gap 6 mmol/L (8-16); Blood Urea Nitrogen 38 mg/dL (9-20); Calcium 8.8 mg/dL (8.4-10.2); Carbon Dioxide 22 mmol/L (22-30); Chloride 107 mmol/L (98-107); Estimated CRCL calculation 38 ml/min; Estimated Glomerular Filt Rate 33; Glucose 86 mg/dL (75-110); Potassium 4.2 mmol/L (3.4-5.0); Sodium 135 mmol/L (137-145)
--- NOTE | 2020-10-28 07:52 | PM.PNNEP ---
Progress Note: A&P Assessment and Plan (1) Abnormal results of kidney function studies: Code(s): R94.4 - Abnormal results of kidney function studies Status: Acute Assessment and Plan: the patient has a high BUN and creatinine. He probably has some chronic kidney disease. Renal ultrasound shows smallish kidneys and increased echogenicity consistent with this. Serology is pending (c3,c4 okay) Immunofixation are pending Etiology most likely hypertension. He has acute on chronic as well. Urine eosinophils are negative. Urine electrolytes are non pre renal CPK is normal the creatinine has improved from 3.1-2.5. It seems to have plateaued at about this level. (2) Hypertensive urgency, malignant: Code(s): I16.0 - Hypertensive urgency Status: Acute Assessment and Plan: the patient had very high blood pressure in the ER. This has come down some. Blood pressure Ana Luisa bit overnight and is now 190. He is on Carvedilol and nifedipine. His pulse is 56 so is at max dose on the carvedilol. Nifedipine was just increased yesterday. It is too early to start an Maksim inhibitor at this point. Will add hydrochlorothiazide. This is a 4th line agent since he had the gout. But now he just needs more medicine for his blood pressure. (3) Gout: Code(s): M10.9 - Gout, unspecified Status: Acute Assessment and Plan: He is getting prednisone now. He feels much better. Now on allopurinol 150. (4) Elevated fasting glucose: Code(s): R73.01 - Impaired fasting glucose Status: Acute Assessment and Plan: His glucose is high. This was before he started the steroids. (5) Bilateral renal cysts: Code(s): N28.1 - Cyst of kidney, acquired Status: Acute Assessment and Plan: Kaylin Raya saw the patient. MRI was not conclusive. Will see what happens with kidney function before deciding when to do the CT with contrast. Subjective Date/time seen: 10/28/20 07:52 Interval history: Jason is feeling okay today. Sitting up at the side of the bed watching TV. No headaches shortness of breath or chest pain. Exam Narrative: Exam Narrative: WDWN in NAD skin no rash Or subcu nodules head ncat lungs clear cor reg no rub or gallop abd BS+ nontender and soft ext no edema or cyanosis Objective Data Vital Signs Vital Signs: Vital Signs - 24 hr 10/27/20 08:00 10/27/20 08:37 10/27/20 14:00 Temperature 36.8 C Pulse Rate 66 56 L 62 Respiratory Rate 18 Blood Pressure 170/102 H Pulse Oximetry 99 10/27/20 14:33 10/27/20 20:52 10/27/20 22:00 Temperature 36.6 C Pulse Rate 68 65 Respiratory Rate 20 Blood Pressure 170/102 H 166/110 H Pulse Oximetry 100 10/28/20 05:53 Temperature 36.4 C Pulse Rate 56 L Respiratory Rate 20 Blood Pressure 192/142 H Pulse Oximetry 100 Intake/Output Intake/Output: Intake & Output 10/25/20 10/26/20 10/27/20 10/28/20 23:59 23:59 23:59 23:59 Intake Total 880 1370 2600 400 Output Total 300 1400 Balance 580 -30 2600 400 Meds/Results Medications: Active Medications Generic Name Dose Route Start Last Admin Trade Name Rioq PRN Reason Stop Dose Admin Acetaminophen 650 mg 10/25/20 01:02 Acetaminophen 325 Mg Tablet PO Q4H PRN Mild Pain (1-3) or Fever Hydrocodone Bitart/Acetaminophen 1 tab 10/25/20 01:02 10/25/20 08:24 Hydrocodone/Acetaminophen (*Crx) 5-325 Mg Tablet PO 1 tab Q4H PRN Administration Pain Rated 4-6 Allopurinol 150 mg 10/27/20 08:00 10/27/20 10:38 Allopurinol 150 Mg Tablet PO 150 mg DAILY@0800 TOI Administration Carvedilol 12.5 mg 10/25/20 21:00 10/27/20 20:52 Carvedilol 12.5 Mg Tablet PO 12.5 mg Q12HR TOI Administration Clonidine HCl 0.1 mg 10/27/20 21:00 10/27/20 20:52 Clonidine Hcl 0.1 Mg Tablet PO 0.1 mg Q12H TOI Administration Hydralazine HCl 20 mg 10/25/20 00:35
[2020-10-28 07:57] VITALS: BP 180/130
[2020-10-28] MEDS: NIFEdipine 30 MG TAB.ER.24 90 MG PO (09:38)
[2020-10-28 09:39] VITALS: PULSE 64
[2020-10-28] MEDS: predniSONE 20 MG TABLET PO (09:39)
[2020-10-28] MEDS: carvediloL 12.5 MG TABLET PO ×2 (09:39→21:46)
[2020-10-28] MEDS: cloNIDine HCL 0.1 MG TABLET PO ×2 (09:39→21:46)
[2020-10-28] MEDS: allopurinoL 150 MG TABLET PO (09:41)
[2020-10-28] MEDS: hydroCHLOROthiazide 25 MG TABLET PO (10:37)
--- NOTE | 2020-10-28 11:57 | PM.IMPN ---
Progress Note: A&P Assessment and Plan (1) Hypertensive urgency, malignant: Code(s): I16.0 - Hypertensive urgency Status: Acute Assessment and Plan: History of untreated HTN - He is currently asymptomatic with no evidence of end-organ dysfunction - BP has been as high as 260/180 and today was 180/130 -Will continue carvdilol nifedipine, clonidine and HCTZ started -Renal duplex US with no evidence of renal artery stenosis. -no evidence of pheochromocytoma on MRI but with bilateral kidney masses, could consider this -Continue clonidine, decreased to q12h (consider switching this to patches for more constant coverage) -IV hydralazine as needed for systolic BP greater than or equal to 200. -Monitor blood pressure closely with cautious normalization (2) Acute on chronic kidney failure: Code(s): N17.9 - Acute kidney failure, unspecified; N18.9 - Chronic kidney disease, unspecified Status: Acute Assessment and Plan: Reports history of kidney disease but cannot recall specifics. - Baseline renal function is unclear. Creatinine 3.1 at presentation. -Likely secondary to uncontrolled hypertension. - Renal US reviewed. Cr stable at 2.6 today -Nephrology has been consulted and input is appreciated. -Serology and immunofixation workup per nephrology -Monitor renal function closely. Renally dose medications and avoid nephrotoxic agents. -PTH elevated likely due to kidney disease, will order vit D level. Calcium normal. (3) Bilateral renal cysts: Code(s): N28.1 - Cyst of kidney, acquired Status: Acute Assessment and Plan: Renal ultrasound with 2 complex cystic left renal masses concerning for renal cell cancer. - Abdominal MRI showed bilateral kidney masses measuring up to 2.6 cm on left. -Recommendation for follow-up CT without and with contrast; cannot receive contrast at this time given BETTIE -f/u with urology outpt (4) Gout: Code(s): M10.9 - Gout, unspecified Status: Acute Assessment and Plan: Left 2nd toe. Uric acid elevated at 8.6. -Received IV dexamethasone in ED. Continue prednisone taper. -Analgesics available as needed, no pain currently -Allopurinol initiated (5) HFrEF (heart failure with reduced ejection fraction): Code(s): I50.20 - Unspecified systolic (congestive) heart failure Status: Acute Assessment and Plan: Echocardiogram with moderately reduced EF 40-45% with increased LV wall thickness and grade III diastolic dysfunction. -BNP elevated at 9450. Cardiomegaly noted on CXR and MRI. He remains asymptomatic. -Appears euvolemic at this time. Monitor clinically -He has been started on carvedilol as above -Case reviewed with on-call clothes model by previous provider. At this time, it is appropriate to establish outpatient follow up with cardiology. Will consider cardiology consultation as an inpatient should he develop any acute symptoms. (6) Elevated fasting glucose: Code(s): R73.01 - Impaired fasting glucose Status: Acute Assessment and Plan: Glucose elevated at presentation, prior to receiving steroids, and he endorsed polydipsia and polyuria. -A1c is 5.3. No further workup warranted. - He is on steroids which may cause hyperglycemia, however short taper is planned. (7) Abnormal urinalysis: Code(s): R82.90 - Unspecified abnormal findings in urine Status: Acute Assessment and Plan: UA at presentation was slightly abnormal. He is asymptomatic. No leukocytosis or fever. Urine culture negative. No further intervention at this time. Time Spent With Patient Time with patient: 25 - 35 minutes Subjective Date/time seen: 10/28/20 11:57 Interval history: Pt is a 45-year-old male here for uncontrolled hypertension. Patient was seen today and is doing well. He desperately wants to smoke a cigarette. Pt denies nausea, vomiting, fevers, chills, constipatio
[2020-10-28] MEDS: NICOTINE (*PBKC) 4 MG GUM PO (12:38)
[2020-10-28 13:35] LABS: Vitamin D 25 Hydroxy < 12.8 ng/mL
[2020-10-28 14:00] VITALS: BP 180/114; PULSE 66; RESP 20; TEMP 36.6; O2SAT 97
[2020-10-28 21:56] VITALS: BP 200/140; PULSE 68; RESP 20; TEMP 36.6; O2SAT 98
[2020-10-28 22:06] VITALS: O2SAT 98
[2020-10-29 06:00] VITALS: BP 198/130; PULSE 65; RESP 20; TEMP 36.3; O2SAT 99
[2020-10-29 06:49] LABS: Albumin Level 3.7 g/dL (3.5-5.1); Anion Gap 5 mmol/L (8-16); Blood Urea Nitrogen 39 mg/dL (9-20); Calcium 8.9 mg/dL (8.4-10.2); Carbon Dioxide 25 mmol/L (22-30); Chloride 105 mmol/L (98-107); Estimated CRCL calculation 39 ml/min; Estimated Glomerular Filt Rate 30; Glucose 93 mg/dL (75-110); Phosphorus 3.9 mg/dL (2.5-4.5); Potassium 3.9 mmol/L (3.4-5.0); Sodium 135 mmol/L (137-145)
[2020-10-29] MEDS: NIFEdipine 30 MG TAB.ER.24 90 MG PO (07:55)
[2020-10-29] MEDS: allopurinoL 150 MG TABLET PO (07:55)
[2020-10-29] MEDS: cloNIDine HCL 0.1 MG TABLET PO ×2 (07:55→20:10)
[2020-10-29 07:56] VITALS: PULSE 62
[2020-10-29] MEDS: hydroCHLOROthiazide 25 MG TABLET PO (07:56)
[2020-10-29] MEDS: carvediloL 12.5 MG TABLET PO (07:56)
[2020-10-29] MEDS: predniSONE 20 MG TABLET PO (07:56)
--- NOTE | 2020-10-29 13:48 | PM.IMPN ---
Progress Note: A&P Assessment and Plan (1) Hypertensive urgency, malignant: Code(s): I16.0 - Hypertensive urgency Status: Acute Assessment and Plan: History of untreated HTN - He is currently asymptomatic with +evidence of end-organ dysfunction: EF 40% with pulmonary HTN, renal failure with elevated Creatinine and BUN. - BP has been as high as 260/180 , yesterday was 180/130, last 3 blood pressures checked since last night were 174/98, 198/130, 200/140 and last 4 pulse rates were 68, 65, 62, 63, regular rate and rhythm . -Will continue carvdilol, nifedipine, clonidine and HCTZ started (at high risk for re-bound hypertensive crisis/CVA if patient suddenly stops taking his meds after discharge, especially Clonidine ). -Renal duplex US with no evidence of renal artery stenosis. -no evidence of pheochromocytoma on MRI but with bilateral kidney masses, could consider this - hydralazine now scheduled per Cardiology -Monitor blood pressure closely with cautious normalization, to minimize lowering s/s includiing: dizziness/lightheadedness/headache/orthostatic hypotension. - will require CV follow up as an outpatient in 4 weeks after discharge. (2) Acute on chronic kidney failure: Code(s): N17.9 - Acute kidney failure, unspecified; N18.9 - Chronic kidney disease, unspecified Status: Acute Assessment and Plan: Reports history of kidney disease but cannot recall specifics. - Baseline renal function is unclear. Creatinine 3.1 at presentation. -Likely secondary to uncontrolled hypertension and/or elevated PTH. - Renal US reviewed. MR reviewed. No hydronephrosis. -= Cr stable at 2.6 today -Nephrology has been consulted and input is appreciated. -Serology and immunofixation workup per nephrology -Monitor renal function closely. Renally dose medications and avoid nephrotoxic agents. -PTH significantly elevated 168. Very low vit D level <12. Calcium normal. TSH normal. (3) Bilateral renal cysts: Code(s): N28.1 - Cyst of kidney, acquired Status: Acute Assessment and Plan: Left kidney renal Cancer: Renal ultrasound with 2 complex cystic left renal masses concerning for renal cell cancer. 1.6x1.6x1.2 ; 2.5x2.2x2. No hydronephrosis on imaging. - Abdominal MRI showed bilateral kidney masses measuring up to 2.6 cm on left, possibly hemorrhagic cysts or neoplasm. -Recommendation for follow-up CT without and with contrast; cannot receive contrast at this time given BETTIE - consulted Oncologist/hemetologist. -may need to f/u with urology outpt (4) Gout: Code(s): M10.9 - Gout, unspecified Status: Acute Assessment and Plan: Left great and 2nd toe. Uric acid elevated at 8.6. - rechecking uric acid level in morning. -Received IV dexamethasone in ED. Continue current prednisone taper. -Analgesics available as needed, improved and no pain currently. -Allopurinol initiated on 10/27/2020. Continued. -counseled him on stopping nicotine cigarette smoking as well as stopping marijuana smoking, avoid alcohol / beer and minimize red meat for now. (5) HFrEF (heart failure with reduced ejection fraction): Code(s): I50.20 - Unspecified systolic (congestive) heart failure Status: Acute Assessment and Plan: Echocardiogram with moderately reduced EF 40-45% with increased LV wall thickness and grade III diastolic dysfunction. Pulmonary HTN too. -BNP elevated at 9450. Cardiomegaly noted on CXR and MRI. -lower EF likely due to prolonged BP uncontrolled -Appears euvolemic at this time. Monitor clinically -He has been started on carvdilol, nifedipine, clonidine, hydralazine, and HCTZ s as above -BPs worse today. Consulted Sweeper Driver Dr. Knowles. He will need to establish outpatient follow up with cardiology. (6) Elevated fasting glucose: Code(s): R73.01 - Impaired fasting glucose Status: Acute Assessment and Plan: Glucose elevated at presentation, p
[2020-10-29 14:00] VITALS: BP 174/98; PULSE 63; RESP 16; TEMP 36.5; O2SAT 99
[2020-10-29 14:13] LABS: Renin 1.11 ng/mL/h (0.25-5.82)
--- NOTE | 2020-10-29 15:02 | PM.CNCAR ---
Assessment and Plan Assessment and plan (1) Cardiomyopathy: Code(s): I42.9 - Cardiomyopathy, unspecified Status: Acute Assessment and Plan: Very likely secondary to hypertensive urgency presentation, severe uncontrolled hypertension resulting in hypertensive heart disease with moderate concentric left ventricular hypertrophy, restrictive cardiomyopathy. However, infiltrative process cannot be entirely excluded. Very likely related to obstructive underlying CAD. NYHA class I sxs He is not currently in decompensated heart failure. Aggressive medical management to control blood pressures primary treatment goal at this time. Beta-yumiko. Carvedilol or Toprol XL preferred given cardiomyopathy over propranolol but underlying bradycardia and poor BP control. Bystolic an option with regards to hypertension of benefit in beta-yumiko support but significantly more expensive. Although renal function a limitation Cardiac MRI may be beneficial given LV dysfunction, LVH, renal failure, and elevated kappa/lambda ratio, elevated free kappa light chains and free lambda light chains. Concern for possible amyloidosis or other infiltrative process given clinical picture. Workup underway. [place] management for his cardiomyopathy centers around BP control but BB and KELY-I/ARB support limited due to renal insufficiency. Must be compliant with recommendations, follow up and medications, lifestyle modifications. CHF counseling performed including red flags sxs and importance of controlling BP to reduce risk for decompensation. He will require CV follow up as an outpatient in 4 weeks after discharge. Once BP better controlled and he is tolerating medications disposition per Renal and Primary Service. I do not have a direct CV reason to keep him nor are there plans for additional CV testing at this time. (2) Hypertensive urgency, malignant: Code(s): I16.0 - Hypertensive urgency Status: Acute Assessment and Plan: I understand discontinuation of carvedilol in favor of Propranolol due to poor BP control and limitations with underlying bradycardia. Observe BP response. Clonidine potentially problematic due to rebound hypertension risk if patient noncompliance. Add Hydralazine 25mg t.i.d. May add long acting nitrates if BP refractory. ?Minoxidil if necessary. While I expressed preference to observe tolerance with medication changes already made today he desired me to not wait to observe tolerance but to add medications that may control his blood pressure allowing for sooner discharge. Limit sodium intake ideally <2000mg daily. Also, avoid potassium salt supplements due to renal failure. (3) Acute on chronic kidney failure: Code(s): N17.9 - Acute kidney failure, unspecified; N18.9 - Chronic kidney disease, unspecified Status: Acute Assessment and Plan: Slight improvement since admission although starting to climb once again. As above, urine eosinophils negative. Elevated free kappa lambda light chains and ratio. Immunofixation pending. Multiple kidney masses noted on MRI of the abdomen, no renal artery stenosis medical renal disease suspected by ultrasound with concern for possible renal cell carcinoma, myeloma, and or cystic complex masses. (4) Tobacco abuse: Code(s): Z72.0 - Tobacco use Status: Acute Assessment and Plan: Smoking cessation counseling performed. Also counseled to avoid smoking marijuana. Avoid alcohol at all costs due to cardiotoxicity and underlying LV dysfunction. History of Present Illness History of Present Illness Consult date/time: Date of service: 10/29/20 15:02 Cardiology consultation at the request of Rosio Tineo of the [facility] service for opinion regarding new cardiomyopathy and uncontrolled hypertension. Requesting physician: Rosio Tineo, GUIDANCE SERVICES COORDINATOR Consult reason: hypertension and Other (Cardiomyopathy) Reason For Visit: severe HTN, CKD, Gout Narrative: 45-y
--- NOTE | 2020-10-29 16:20 | PDONCCN ---
HPI - Date of Consult Date/Time: 10/29/20 16:20 Requesting Physician: Rosio Tineo NP Primary Care Provider: [facility] - Consult Narrative Reason for consult: Bilateral renal masses Narrative: Jason Whiteside III is a 45 year old male who is in good health except history of hypertension came into the hospital with sudden onset of left foot pain he denies any chest pain and shortness of breath. Denies any bleeding and bruising. No weight loss. Denies any hematuria and dysuria. Foot x-ray showed no fractures. Blood test showed elevated uric acid were 8.6. Creatinine was elevated at 3.1. He has no previous history of kidney disease. Patient was anemic with hemoglobin of 13.5. Ultrasound showed 2 complex cyst in the left kidney. Patient had abdominal MRI done that showed bilateral kidney masses measure up to 2.6 cm on the left which may be hemorrhagic cyst or neoplasm. His blood pressure on admission was 256/159. He was on blood pressure medicine but stopped taking due to poor tolerance. Review of Systems - Review of Systems All systems reviewed & are unremarkable except as noted in HPI and bel - Neurologic Reports system reviewed and no additional complaints, except as documented, Reports hearing normal, Denies vertigo, Denies headache(s), Denies focal weakness, Denies numbness, Denies other visual disturbances, Denies sensory deficit, Denies weakness PMFSH Medical History: Medical History (Last Reviewed 10/29/20 @ 15:03 by Bon Knowles MD) Abnormal results of kidney function studies Chronic kidney disease (CKD) Hypertension Family History: Family History (Last Reviewed 10/29/20 @ 15:03 by Bon Knowles MD) Mother Hypertension - Social History Social History: Social History (Last Reviewed 10/29/20 @ 15:03 by Bon Knowles MD) Gender Identity: Gender identity (if verbalized by the patient): Male Sexual Orientation: Sexual Orientation (if Verbalized by the Patient): Straight or Heterosexual Alcohol Use: Alcohol intake: never Substance Use: Substance use: never Others: Spiritual care concerns: No Smoking Status: Smoking status: Current every day smoker Smoking Pack-years: Smoking packs per day: 1 Smoking cigarettes per day: 20.0 Years smoked: 15 Smoking pack-years: 15.00 Meds Home Medications Medication Instructions Recorded Confirmed Type No Home Medications 10/24/20 10/24/20 History Allergies Allergy/AdvReac Type Severity Reaction Status Date / Time No Known Allergies Allergy Verified 10/24/20 22:21 Results - Labs CBC & Chem 7: 10/28/20 05:37 10/29/20 05:42 Labs: BMP 10/29/20 05:42 Sodium 135 L Potassium 3.9 Chloride 105 Carbon Dioxide 25 BUN 39 H Creatinine 2.80 H Glucose 93 Calcium 8.9 Liver Function 10/29/20 Range/Units 05:42 Albumin 3.7 (3.5-5.1) g/dL Assessment and Plan - Additional Plan Bilateral renal masses. MRI showed 2.6 cm mass on the left which would be hemorrhagic cyst or neoplasm. There were multiple masses in each kidneys. Spleen gallbladder pancreas and adrenal glands were normal. There was cardiomegaly and LVH noted. At this point given his renal insufficiency will avoid CT scan with contrast. I have instructed him to follow up with me in the office and will monitor his kidney function. Once kidney function is stable we will order CT scan as an outpatient. Anemia. This is likely secondary to renal insufficiency. Myeloma/amyloidosis testing is pending. Elevated kappa and lambda light chain is likely secondary to poor kidney function. Acute renal insufficiency. Myeloma test results are pending. Dr. Kraft is following of the patient. Gout. Patient is on allopurinol and already feeling better. Malignant hypertension. Patient is on 4 different antihypertensive medication. Case was discussed with Dr. Valdovinos.
[2020-10-29] MEDS: hydrALAZINE HCL 25 MG TABLET PO (16:55)
--- NOTE | 2020-10-29 18:03 | PM.PNNEP ---
Progress Note: A&P Assessment and Plan (1) Abnormal results of kidney function studies: Code(s): R94.4 - Abnormal results of kidney function studies Status: Acute Assessment and Plan: the patient has a high BUN and creatinine. He probably has some chronic kidney disease. Renal ultrasound shows smallish kidneys and increased echogenicity consistent with this. Serology is pending (c3,c4 okay) Immunofixation are pending Etiology most likely hypertension. it looks like his creatinine is stabilizing in the mid to high 2s. This may be his baseline. He has acute on chronic as well. Urine eosinophils are negative. Urine electrolytes are non pre renal CPK is normal the creatinine has improved from 3.1-2.5. It seems to have plateaued at about this level. (2) Hypertensive urgency, malignant: Code(s): I16.0 - Hypertensive urgency Status: Acute Assessment and Plan: the patient had very high blood pressure in the ER. This has come down some. Blood pressure Is still high. Renin and aldosterone are both low suggesting salt related hypertension. TSH is okay. PTH is high, but this is secondary. Most likely due to the chronic kidney disease but also due to the low vitamin-D level. His calcium levels not high so I do not think this is primary hyper parathyroidism and so is not related to his hypertension. He is on carvedilol , hydrochlorothiazide, clonidine, and nifedipine. clonidine is short term because he cannot be discharged on this plus a beta-yumiko. His pulse is 56 so is at max dose on the carvedilol. Will change to labetalol. Because of the DARCY, pulse may not be as much of a limitation. Will increase nifedipine to 60 b.i.d. today. Cardiology being consulted. (3) Gout: Code(s): M10.9 - Gout, unspecified Status: Acute Assessment and Plan: He is getting prednisone now. He feels much better. Now on allopurinol 150. (4) Elevated fasting glucose: Code(s): R73.01 - Impaired fasting glucose Status: Acute Assessment and Plan: His glucose is high. This was before he started the steroids. (5) Bilateral renal cysts: Code(s): N28.1 - Cyst of kidney, acquired Status: Acute Assessment and Plan: Kaylin Raya saw the patient. MRI was not conclusive. Will see what happens with kidney function before deciding when to do the CT with contrast. Oncology's being consulted. Subjective Date/time seen: 10/29/20 18:03 Interval history: Jason is feeling okay today. No shortness of breath. No chest pain Exam Narrative: Exam Narrative: WDWN in NAD skin no rash Or subcu nodules head ncat lungs clear bilaterally cor reg no rub or gallop abd BS+ nontender and soft ext no edema or cyanosis Objective Data Vital Signs Vital Signs: Vital Signs - 24 hr 10/28/20 21:56 10/28/20 22:06 10/29/20 06:00 Temperature 36.6 C 36.3 C L Pulse Rate 68 65 Respiratory Rate 20 20 Blood Pressure 200/140 H 198/130 H Pulse Oximetry 98 98 99 10/29/20 07:56 10/29/20 14:00 Temperature 36.5 C Pulse Rate 62 63 Respiratory Rate 16 Blood Pressure 174/98 H Pulse Oximetry 99 Intake/Output Intake/Output: Intake & Output 10/26/20 10/27/20 10/28/20 10/29/20 23:59 23:59 23:59 23:59 Intake Total 1370 2600 2130 1170 Output Total 1400 780 350 Balance -30 2600 1350 820 Meds/Results Medications: Active Medications Generic Name Dose Route Start Last Admin Trade Name Freq PRN Reason Stop Dose Admin Acetaminophen 650 mg 10/25/20 01:02 Acetaminophen 325 Mg Tablet PO Q4H PRN Mild Pain (1-3) or Fever Hydrocodone Bitart/Acetaminophen 1 tab 10/25/20 01:02 10/25/20 08:24 Hydrocodone/Acetaminophen (*Crx) 5-325 Mg Tablet PO 1 tab Q4H PRN Administration Pain Rated 4-6 Allopurinol 150 mg 10/27/20 08:00 10/29/20 07:55 Allopurinol 150 Mg Tablet PO 150 m
[2020-10-29] MEDS: NIFEdipine 30 MG TAB.ER.24 60 MG PO (20:09)
[2020-10-29 20:10] VITALS: PULSE 68
[2020-10-29] MEDS: LABETALOL HCL 100 MG TABLET 200 MG PO (20:10)
[2020-10-29 20:12] VITALS: BP 165/107; PULSE 68
[2020-10-29 22:00] VITALS: BP 151/100; PULSE 63; RESP 16; TEMP 36.5; O2SAT 100
[2020-10-30 06:00] VITALS: BP 147/93; PULSE 57; RESP 20; TEMP 36.6; O2SAT 97
[2020-10-30 06:53] LABS: Anion Gap 8 mmol/L (8-16); Blood Urea Nitrogen 41 mg/dL (9-20); Calcium 8.9 mg/dL (8.4-10.2); Carbon Dioxide 22 mmol/L (22-30); Chloride 105 mmol/L (98-107); Estimated CRCL calculation 41 ml/min; Estimated Glomerular Filt Rate 31; Glucose 100 mg/dL (75-110); Potassium 3.8 mmol/L (3.4-5.0); Sodium 135 mmol/L (137-145)
[2020-10-30 08:00] VITALS: PULSE 64; RESP 20; O2SAT 97
[2020-10-30] MEDS: hydrALAZINE HCL 25 MG TABLET PO ×3 (08:20→17:58)
[2020-10-30] MEDS: predniSONE 20 MG TABLET PO (08:20)
[2020-10-30] MEDS: cloNIDine HCL 0.1 MG TABLET PO (08:20)
[2020-10-30] MEDS: allopurinoL 150 MG TABLET PO (08:20)
[2020-10-30] MEDS: CHOLECALCIFEROL 1,000 UNITS TABLET 5000 UNITS PO (08:20)
[2020-10-30] MEDS: hydroCHLOROthiazide 25 MG TABLET PO (08:21)
[2020-10-30 08:22] VITALS: PULSE 62
[2020-10-30] MEDS: LABETALOL HCL 100 MG TABLET 200 MG PO ×2 (08:22→21:24)
[2020-10-30] MEDS: NIFEdipine 30 MG TAB.ER.24 60 MG PO ×2 (08:26→21:24)
--- NOTE | 2020-10-30 09:52 | PM.PNNEP ---
Progress Note: A&P Assessment and Plan (1) Abnormal results of kidney function studies: Code(s): R94.4 - Abnormal results of kidney function studies Status: Acute Assessment and Plan: the patient has a high BUN and creatinine. He probably has some chronic kidney disease. Renal ultrasound shows smallish kidneys and increased echogenicity consistent with this. Serology is pending (c3,c4 okay) Immunofixation are pending K/L is 1.9. This is normal up to 3 in patients with CKD. Etiology most likely hypertension. it looks like his creatinine is stabilizing in the mid to high 2s. This may be his baseline. He has acute on chronic as well. Urine eosinophils are negative. Urine electrolytes are non pre renal CPK is normal the creatinine has improved from 3.1 , having plateaued in the mid to high 2s. (2) Hypertensive urgency, malignant: Code(s): I16.0 - Hypertensive urgency Status: Acute Assessment and Plan: the patient had very high blood pressure in the ER. This has come down some. Blood pressure Is still high. Renin and aldosterone are both low suggesting salt related hypertension. TSH is okay. PTH is high, but this is secondary. Most likely due to the chronic kidney disease but also due to the low vitamin-D level. His calcium levels not high so I do not think this is primary hyper parathyroidism and so is not related to his hypertension. He is on Labetalol, hydrochlorothiazide, clonidine, Hydralazine, and nifedipine. clonidine is short term because he cannot be discharged on this plus a beta-yumiko. will stop this. His pulse is Sixty-two. cardiology saw the patient. Appreciate input. (3) Gout: Code(s): M10.9 - Gout, unspecified Status: Acute Assessment and Plan: He is getting prednisone now. This is being weaned. He feels much better. Now on allopurinol 150. (4) Elevated fasting glucose: Code(s): R73.01 - Impaired fasting glucose Status: Acute Assessment and Plan: His glucose is high. This was before he started the steroids. (5) Bilateral renal cysts: Code(s): N28.1 - Cyst of kidney, acquired Status: Acute Assessment and Plan: Kaylin Raya saw the patient. MRI was not conclusive. Will see what happens with kidney function before deciding when to do the CT with contrast. Oncology Saw the patient. Appreciate the input. Subjective Date/time seen: 10/30/20 09:52 Interval history: Jason is feeling okay today. Sitting at the side of the bed watching Netflix. ate a good breakfast No shortness of breath. No chest pain Exam Narrative: Exam Narrative: WDWN in NAD skin no rash Or subcu nodules head ncat lungs clear to auscultation cor reg no rub or gallop abd BS+ nontender and soft ext no edema or cyanosis Objective Data Vital Signs Vital Signs: Vital Signs - 24 hr 10/29/20 14:00 10/29/20 20:10 10/29/20 20:12 Temperature 36.5 C Pulse Rate 63 68 68 Respiratory Rate 16 Blood Pressure 174/98 H 165/107 H Pulse Oximetry 99 10/29/20 22:00 10/30/20 06:00 10/30/20 08:22 Temperature 36.5 C 36.6 C Pulse Rate 63 57 L 62 Respiratory Rate 16 20 Blood Pressure 151/100 H 147/93 H Pulse Oximetry 100 97 Intake/Output Intake/Output: Intake & Output 10/27/20 10/28/20 10/29/20 10/30/20 23:59 23:59 23:59 23:59 Intake Total 2600 2130 2630 250 Output Total 780 1750 Balance 2600 1350 880 250 Meds/Results Medications: Active Medications Generic Name Dose Route Start Last Admin Trade Name Freq PRN Reason Stop Dose Admin Acetaminophen 650 mg 10/25/20 01:02 Acetaminophen 325 Mg Tablet PO Q4H PRN Mild Pain (1-3) or Fever Hydrocodone Bitart/Acetaminophen 1 tab 10/25/20 01:02 10/25/20 08:24 Hydrocodone/Acetaminophen (*Crx) 5-325 Mg Tablet PO 1 tab Q4H PRN Administration Pain Rated 4-6 Allopurinol
--- NOTE | 2020-10-30 12:02 | PM.IMPN ---
Progress Note: A&P Assessment and Plan (1) Hypertensive urgency, malignant: Code(s): I16.0 - Hypertensive urgency Status: Acute Assessment and Plan: History of untreated HTN - He is currently asymptomatic with +evidence of end-organ dysfunction: EF 40% with pulmonary HTN, renal failure with elevated Creatinine and BUN. - BP has been as high as 260/180 , yesterday was 180/130, last 3 blood pressures checked since last night were 174/98, 198/130, 200/140 and last 4 pulse rates were 68, 65, 62, 63, regular rate and rhythm . -Will continue carvdilol, nifedipine, clonidine and HCTZ started (at high risk for re-bound hypertensive crisis/CVA if patient suddenly stops taking his meds after discharge, especially Clonidine ). -Renal duplex US with no evidence of renal artery stenosis. -no evidence of pheochromocytoma on MRI but with bilateral kidney masses -Monitor blood pressure closely, hopeful Dc tomorrow. (2) Acute on chronic kidney failure: Code(s): N17.9 - Acute kidney failure, unspecified; N18.9 - Chronic kidney disease, unspecified Status: Acute Assessment and Plan: Reports history of kidney disease but cannot recall specifics. - Baseline renal function is unclear. Creatinine 3.1 at presentation. -Likely secondary to uncontrolled hypertension and/or elevated PTH. - Renal US reviewed. MR reviewed. No hydronephrosis. -= Cr stable at 2.7 today -Nephrology has been consulted and input is appreciated. (3) Bilateral renal cysts: Code(s): N28.1 - Cyst of kidney, acquired Status: Acute Assessment and Plan: Left kidney renal Cancer: Renal ultrasound with 2 complex cystic left renal masses concerning for renal cell cancer. 1.6x1.6x1.2 ; 2.5x2.2x2. No hydronephrosis on imaging. - Abdominal MRI showed bilateral kidney masses measuring up to 2.6 cm on left, possibly hemorrhagic cysts or neoplasm. -Recommendation for follow-up CT without and with contrast; cannot receive contrast at this time given BETTIE - consulted Oncologist/hemetologist. t (4) Gout: Code(s): M10.9 - Gout, unspecified Status: Acute Assessment and Plan: Left great and 2nd toe. Uric acid elevated at 8.6. - rechecking uric acid level in morning. -Received IV dexamethasone in ED. Continue current prednisone taper. -Analgesics available as needed, improved and no pain currently. -Allopurinol initiated on 10/27/2020. Continued. -counseled him on stopping nicotine cigarette smoking as well as stopping marijuana smoking, avoid alcohol / beer and minimize red meat for now. (5) HFrEF (heart failure with reduced ejection fraction): Code(s): I50.20 - Unspecified systolic (congestive) heart failure Status: Acute Assessment and Plan: Echocardiogram with moderately reduced EF 40-45% with increased LV wall thickness and grade III diastolic dysfunction. Pulmonary HTN too. -BNP elevated at 9450. Cardiomegaly noted on CXR and MRI. -lower EF likely due to prolonged BP uncontrolled -Appears euvolemic at this time. Monitor clinically -He has been started on carvdilol, nifedipine, clonidine, hydralazine, and HCTZ s as above Cardiology rounding (6) Elevated fasting glucose: Code(s): R73.01 - Impaired fasting glucose Status: Acute Assessment and Plan: Glucose elevated at presentation, prior to receiving steroids, and he endorsed polydipsia and polyuria. -A1c is 5.3. No further workup warranted. (7) Abnormal urinalysis: Code(s): R82.90 - Unspecified abnormal findings in urine Status: Acute Assessment and Plan: UA at presentation was slightly abnormal. Subjective Date/time seen: 10/30/20 12:02 Interval history: Pt is a 45-year-old male here for uncontrolled hypertension, low vitamin D, elevated PTH, renal failure, and newly diagnosed renal masses. Patient was seen today and is doing well. He desperately wants to go home, as he is w
--- NOTE | 2020-10-30 13:28 | PM.PNCARD ---
Progress Note: A&P Additional Plan 45-year-old man with: Relatively severe hypertension with end-organ disease as mentioned in consult notes. He is now on a multi-drug regimen with blood pressure that while certainly not ideal is also acceptable and does not require ongoing hospital inpatient treatment in my opinion. Can follow up with his primary care, property and supply officer and with Dr. Knowles of our practice. Nnamdi Romo MD [facility] Subjective Date/time seen: Date of service: 10/30/20 13:28 Interval history: Follow-up visit in this 45-year-old man with: Severe hypertension with end-organ disease primarily chronic kidney disease. Is admitted to the hospital with gouty arthritis. He is now on a multi-drug regimen and his blood pressure wall not ideal is certainly acceptable. Patient is asymptomatic watching television in eating his lunch. He is not happy that he is not being discharged. Exam Const: General: comfortable and no acute distress HENMT: Mouth: Yes moist mucous membranes Eyes: Sclera: sclerae normal Pupils: Equal, round and reactive pupils present Neck: Neck: supple and no JVD Thyroid: thyroid normal Resp: Effort & Inspection: normal respiratory effort Auscultation: clear to auscultation bilaterally Cardio: Rate: regular rate Rhythm: regular rhythm GI: GI Palp: Yes Soft to palpation Auscultation: normal bowel sounds Neuro: Cognition (Neuro): normal cognition Extrem: General: normal to inspection Objective Data Vital Signs Vital Signs: Vital Signs - 24 hr 10/29/20 14:00 10/29/20 20:10 10/29/20 20:12 Temperature 36.5 C Pulse Rate 63 68 68 Respiratory Rate 16 Blood Pressure 174/98 H 165/107 H Pulse Oximetry 99 10/29/20 22:00 10/30/20 06:00 10/30/20 08:00 Temperature 36.5 C 36.6 C Pulse Rate 63 57 L 64 Respiratory Rate 16 20 20 Blood Pressure 151/100 H 147/93 H Pulse Oximetry 100 97 97 10/30/20 08:22 Temperature Pulse Rate 62 Respiratory Rate Blood Pressure Pulse Oximetry Intake/Output Intake/Output: Intake & Output 10/27/20 10/28/20 10/29/20 10/30/20 23:59 23:59 23:59 23:59 Intake Total 2600 2130 2630 490 Output Total 780 1750 Balance 2600 1350 880 490 Meds/Results Medications: Active Medications Generic Name Dose Route Start Last Admin Trade Name Freq PRN Reason Stop Dose Admin Acetaminophen 650 mg 10/25/20 01:02 Acetaminophen 325 Mg Tablet PO Q4H PRN Mild Pain (1-3) or Fever Hydrocodone Bitart/Acetaminophen 1 tab 10/25/20 01:02 10/25/20 08:24 Hydrocodone/Acetaminophen (*Crx) 5-325 Mg Tablet PO 1 tab Q4H PRN Administration Pain Rated 4-6 Allopurinol 150 mg 10/27/20 08:00 10/30/20 08:20 Allopurinol 150 Mg Tablet PO 150 mg DAILY@0800 [facility] Administration Hydralazine HCl 20 mg 10/25/20 00:35 10/26/20 06:31 Hydralazine Hcl 20 Mg/Ml Vial IV PUSH 20 mg Q6H PRN Administration [id number] Hydralazine HCl 25 mg 10/29/20 17:00 10/30/20 08:20 Hydralazine Hcl 25 Mg Tablet PO 25 mg TID TOI Administration Hydrochlorothiazide 25 mg 10/28/20 09:00 10/30/20 08:21 Hydrochlorothiazide 25 Mg Tablet PO 25 mg QAM TOI Administration Labetalol HCl 200 mg 10/29/20 21:00 10/30/20 08:22 Labetalol Hcl 100 Mg Tablet PO 200 mg Q12HR TOI Administration Nicotine Polacrilex 4 mg 10/28/20 11:58 10/28/20 12:38 Nicotine (*Pbkc) 4 Mg Gum PO 4 mg PRN PRN Administration Nicotine Cravings Nifedipine 60 mg 10/29/20 21:00 10/30/20 08:26 Nifedipine 30 Mg Tab.Er.24 PO 60 mg Q12HR TOI Administration Prednisone 10 mg 10/31/20 09:00 Prednisone 10 Mg Tablet PO 11/02/20 09:01 DAILY [facility] Vitamin D 5,000 units 10/30/20 09:00 10/30/20 08:20 Cholecalciferol 1,000 Units Tablet PO 5,000 units DAILY TOI Administration Radiology Results: ITS Impressions Foot X-Ray 10/25/20 07:17 IMPRESSION: 1. Mild polyarticular osteoarthritis. Chest
[2020-10-30 14:00] VITALS: BP 141/89; PULSE 65; RESP 18; TEMP 36.5; O2SAT 100
[2020-10-30 21:24] VITALS: PULSE 67
[2020-10-30 22:00] VITALS: BP 166/98; PULSE 67; RESP 16; TEMP 36.7; O2SAT 95
[2020-10-31 06:00] VITALS: BP 168/102; PULSE 70; RESP 16; TEMP 36.4; O2SAT 100
[2020-10-31 06:48] LABS: Anion Gap 8 mmol/L (8-16); Blood Urea Nitrogen 46 mg/dL (9-20); Calcium 8.9 mg/dL (8.4-10.2); Carbon Dioxide 24 mmol/L (22-30); Chloride 103 mmol/L (98-107); Estimated CRCL calculation 42 ml/min; Estimated Glomerular Filt Rate 33; Glucose 89 mg/dL (75-110); Phosphorus 4.6 mg/dL (2.5-4.5); Potassium 3.8 mmol/L (3.4-5.0); Sodium 135 mmol/L (137-145)
[2020-10-31] MEDS: CHOLECALCIFEROL 1,000 UNITS TABLET 5000 UNITS PO (08:05)
[2020-10-31] MEDS: NIFEdipine 30 MG TAB.ER.24 60 MG PO (08:05)
[2020-10-31] MEDS: hydrALAZINE HCL 25 MG TABLET PO (08:05)
[2020-10-31] MEDS: allopurinoL 150 MG TABLET PO (08:05)
[2020-10-31] MEDS: LABETALOL HCL 100 MG TABLET 200 MG PO (08:05)
[2020-10-31] MEDS: predniSONE 10 MG TABLET PO (08:06)
--- NOTE | 2020-10-31 10:24 | PM.PNNEP ---
Progress Note: A&P Assessment and Plan (1) Abnormal results of kidney function studies: Code(s): R94.4 - Abnormal results of kidney function studies Status: Acute Assessment and Plan: the patient has a high BUN and creatinine. He probably has some chronic kidney disease. Renal ultrasound shows smallish kidneys and increased echogenicity consistent with this. Serology is pending (c3,c4 okay) Immunofixation are pending K/L is 1.9. This is normal up to 3 in patients with CKD. Etiology most likely hypertension. it looks like his creatinine is stabilizing in the mid to high 2s. This may be his baseline. He has acute on chronic as well. Urine eosinophils are negative. Urine electrolytes are non pre renal CPK is normal the creatinine has improved from 3.1 , having plateaued in the mid to high 2s. This is probably his chronic baseline. (2) Hypertensive urgency, malignant: Code(s): I16.0 - Hypertensive urgency Status: Acute Assessment and Plan: the patient had very high blood pressure in the ER. This has come down some. Blood pressure is better. It is ranging from 140-160. This is Goal for the next month or two. Then will work on getting down into the 120 after his dysautoregulation resolves. Renin and aldosterone are both low suggesting salt related hypertension. TSH is okay. PTH is high, but this is secondary. Most likely due to the chronic kidney disease but also due to the low vitamin-D level. His calcium levels not high so I do not think this is primary hyper parathyroidism and so is not related to his hypertension. He is on Labetalol, hydrochlorothiazide, clonidine, Hydralazine, and nifedipine. clonidine is stopped. His pulse is in the 60s. cardiology saw the patient. Appreciate input. (3) Gout: Code(s): M10.9 - Gout, unspecified Status: Acute Assessment and Plan: He is getting prednisone now. This is being weaned. He feels much better. Now on allopurinol 150. (4) Elevated fasting glucose: Code(s): R73.01 - Impaired fasting glucose Status: Acute Assessment and Plan: His glucose is high. This was before he started the steroids. (5) Bilateral renal cysts: Code(s): N28.1 - Cyst of kidney, acquired Status: Acute Assessment and Plan: APN. Raya saw the patient. MRI was not conclusive. Will see what happens with kidney function before deciding when to do the CT with contrast. Oncology Saw the patient. Appreciate the input. Subjective Date/time seen: 10/31/20 10:24 Interval history: Jason is feeling okay today. Sitting at the side of the bed playing baseball with his X Box. Exam Narrative: Exam Narrative: WDWN in NAD skin no rash Or subcu nodules head ncat lungs clear cor reg no rub or gallop abd BS+ nontender and soft ext no edema or cyanosis Objective Data Vital Signs Vital Signs: Vital Signs - 24 hr 10/30/20 14:00 10/30/20 21:24 10/30/20 22:00 Temperature 36.5 C 36.7 C Pulse Rate 65 67 67 Respiratory Rate 18 16 Blood Pressure 141/89 H 166/98 H Pulse Oximetry 100 95 10/31/20 06:00 Temperature 36.4 C Pulse Rate 70 Respiratory Rate 16 Blood Pressure 168/102 H Pulse Oximetry 100 Intake/Output Intake/Output: Intake & Output 10/28/20 10/29/20 10/30/20 10/31/20 23:59 23:59 23:59 23:59 Intake Total 2130 2630 1540 760 Output Total 780 1750 Balance 6721 508 7319 760 Meds/Results Medications: Active Medications Generic Name Dose Route Start Last Admin Trade Name Freq PRN Reason Stop Dose Admin Acetaminophen 650 mg 10/25/20 01:02 Acetaminophen 325 Mg Tablet PO Q4H PRN Mild Pain (1-3) or Fever Hydrocodone Bitart/Acetaminophen 1 tab 10/25/20 01:02 10/25/20 08:24 Hydrocodone/Acetaminophen (*Crx) 5-325 Mg Tablet PO 1 tab Q4H PRN Administration Pain Rated 4-6 Allopurinol 150 mg 10/27/20 08
[2020-10-31] MEDS: hydroCHLOROthiazide 25 MG TABLET PO (10:26)
[2020-10-31 12:52] VITALS: BP 150/89
--- NOTE | 2020-10-31 13:11 | PM.DS ---
DS: Admitting Diagnosis Admitting Diagnosis Admitting Diagnosis: LEFT TOE PAIN DS: Discharge Diagnosis Discharge Diagnosis (1) Hypertensive urgency, malignant: Code(s): I16.0 - Hypertensive urgency Status: Acute Assessment and Plan: History of untreated HTN - He is currently asymptomatic with +evidence of end-organ dysfunction: EF 40% with pulmonary HTN, renal failure with elevated Creatinine and BUN. - BP has been as high as 260/180 , yesterday was 180/130, last 3 blood pressures checked since last night were 174/98, 198/130, 200/140 on admission -On continue carvedilol, nifedipine, clonidine and HCTZ started. -Renal duplex US with no evidence of renal artery stenosis. -No evidence of pheochromocytoma on MRI but with bilateral kidney masses -Bp improved pt ok for discharge today (2) Acute on chronic kidney failure: Code(s): N17.9 - Acute kidney failure, unspecified; N18.9 - Chronic kidney disease, unspecified Status: Acute Assessment and Plan: - Baseline renal function is unclear. Creatinine 3.1 at presentation. -Likely secondary to uncontrolled hypertension and/or elevated PTH. - Renal US reviewed. MR reviewed. No hydronephrosis. -Cr stable at 2.7 today -Pt seen by nephrology (3) Bilateral renal cysts: Code(s): N28.1 - Cyst of kidney, acquired Status: Acute Assessment and Plan: Renal ultrasound with 2 complex cystic left renal masses concerning for renal cell cancer. 1.6x1.6x1.2 ; 2.5x2.2x2. No hydronephrosis on imaging. - Abdominal MRI showed bilateral kidney masses measuring up to 2.6 cm on left, possibly hemorrhagic cysts or neoplasm. -Recommendation for follow-up CT without and with contrast; cannot receive contrast at this time given BETTIE - consulted Oncologist/hemetologist for renal complex cysts (4) Gout: Code(s): M10.9 - Gout, unspecified Status: Acute Assessment and Plan: Left great and 2nd toe. Uric acid elevated at 8.6. - rechecking uric acid level in morning. -Received IV dexamethasone in ED. Continue current prednisone taper. -Analgesics available as needed, improved and no pain currently. -Allopurinol initiated on 10/27/2020. Continued. -counseled him on stopping nicotine cigarette smoking as well as stopping marijuana smoking, avoid alcohol / beer and minimize red meat for now. (5) HFrEF (heart failure with reduced ejection fraction): Code(s): I50.20 - Unspecified systolic (congestive) heart failure Status: Acute Assessment and Plan: Echocardiogram with moderately reduced EF 40-45% with increased LV wall thickness and grade III diastolic dysfunction. Pulmonary HTN too. -BNP elevated at 9450. Cardiomegaly noted on CXR and MRI. -lower EF likely due to prolonged BP uncontrolled -He has been started on carvdilol, nifedipine, clonidine, hydralazine, and HCTZ s as above Cardiology rounding (6) Elevated fasting glucose: Code(s): R73.01 - Impaired fasting glucose Status: Acute Assessment and Plan: Glucose elevated at presentation, prior to receiving steroids, and he endorsed polydipsia and polyuria. -A1c is 5.3. No further workup warranted. (7) Abnormal urinalysis: Code(s): R82.90 - Unspecified abnormal findings in urine Status: Acute Assessment and Plan: UA at presentation was slightly abnormal. DS: Summary Hospital Course Hospital Course: Pt is a 45-year-old male here for uncontrolled hypertension, low vitamin D, elevated PTH, renal failure, and newly diagnosed renal masses. Patient was seen today and is doing well. He desperately wants to go home, as he is worried about his bills, losing his job, and taking care of his 2 children. He also has a history of smoking marijuana and nicotine cigarette, see detailed notes above. Time Spent with Patient Time attestation: Total time spent providing and/or coordinating discharge services:40 minutes on
--- NOTE | 2020-10-31 14:57 | PC.NURSE ---
Pt is being discharged at this time. Pt's IV has been removed, and discharge instructions were reviewed with pt and his SO. Pt and SO both exhibited a good understanding of discharge instructions. Pt ambulated to the front door with no difficulties noted.
[2020-11-04 11:17] LABS: Albumin 69 %; Creat 24 Hr 1.96 g/24 h (0.50-2.15); Measured Kappa Chains 3.57 mg/dL (<2.00); Measured Lambda Chains 1.51 mg/dL (<2.00); Pro/Creat Ratio 685 mg/g creat (<=114); Total Kappa Chains 85.68 mg/24 h; Total Lambda Chains 36.24 mg/24 h
[2020-11-04 19:36] LABS: Calculated Total (E+NE) 44 mcg/24 h (26-121); Dopamine, 24hr Urine 169 mcg/24 h (52-480); Norepinephrine, 24hr Urine 44 mcg/24 h (15-100)
[2020-11-04 22:23] LABS: Metanephrine, Total Urine 781 mcg/24 h (182-739); Metanephrine, Urine 182 mcg/24 h (58-203); Normetanephrine, Urine 599 mcg/24 h (88-649)
== END 2020-10-31 14:55 | disposition home or self-care (01) | DRG 194 ==
LOC: ANHED 10-25 00:53 → ANHIMU 10-25 03:51 → ANH3MEDSUR 10-28 07:10 → ANHIMU 11-03 16:15
PROVIDERS: Internal Medicine Nephrology; Physician Assistant; Admitting Provider Internal Medicine; Emergency Provider Emergency Medicine; Visit Provider Nurse Practitioner
DX: I13.0 Hypertensive heart and chronic kidney disease with heart failure and stage 1 through stage 4 chronic kidney disease, or unspecified chronic kidney disease (principal); N18.9 Chronic kidney disease, unspecified; M10.9 Gout, unspecified; Z72.0 Tobacco use; N28.1 Cyst of kidney, acquired; I50.20 Unspecified systolic (congestive) heart failure; N17.9 Acute kidney failure, unspecified; I42.9 Cardiomyopathy, unspecified
CPT/HCPCS: 36415; 71046; 73630; 74181; 76775; 80048; 80053; 80069; 81001; 82088; 82306; 82384; 82550; 82570; 83036; 83835; 83880; 83883; 83970; 84156; 84244; 84300; 84443; 84550; 85014; 85018; 85025; 85027; 85999; 86038; 86160; 86162; 86334; 86335; 87086; 93005; 93306; 93976; 96374; 96375; 99285; A9270; J0360; J1100; J7030; J7512

== ENCOUNTER 2021-08-03 10:03 | Emergency (ER) | payer BC, SELFPAY ==
[2021-08-03 10:08] VITALS: BP 204/110; PULSE 74; RESP 16; TEMP 36.9; O2SAT 100
--- NOTE | 2021-08-03 10:26 | ED.BACK ---
HPI - Back Pain/Injury General Chief Complaint: Back Pain/Injury Stated Complaint: back pain Time Seen by Provider: 08/03/21 10:05 Source: RN notes reviewed History of Present Illness HPI Narrative: Patient presents emergency room from home for back pain. Patient states symptoms began approximately 3 weeks ago pain is located in right lower back and goes into his right leg described as sharp and stabbing and worse with movement he denies any direct trauma or injury he denies any numbness or weakness of the extremity denies any fevers or chills abdominal pain bowel or bladder incontinence or any other symptoms states he has been taking ibuprofen at home for the pain with last dose last night Related Data Home Medications Medication Instructions Recorded Confirmed atorvastatin 08/03/21 hydrochlorothiazide 08/03/21 Allergies Allergy/AdvReac Type Severity Reaction Status Date / Time No Known Allergies Allergy Verified 08/03/21 10:13 Review of Systems Review of Systems: Gen.: Denies fevers or chills ENT: Denies congestion Respiratory: Denies shortness of breath or cough CV: Denies chest pain or palpitations GI: Denies abdominal pain nausea, emesis Musculoskeletal: See history of Neuro: Denies numbness, tingling, weakness or focal weakness Skin: Denies rash Except as documented, all other systems reviewed and negative PMFSH Past Medical History Medical History Abnormal results of kidney function studies Chronic kidney disease (CKD) Hypertension Family History Family History Mother Hypertension Social History Social History Smoking packs per day: 1 Smoking cigarettes per day: 20.0 Years smoked: 15 Smoking pack-years: 15.00 Smoking status: Current every day smoker Alcohol intake: never Substance use: never Gender identity (if verbalized by the patient): Male Sexual Orientation (if Verbalized by the Patient): Straight or Heterosexual Spiritual care concerns: No Exam Narrative: APPEARANCE: No acute distress, nontoxic, resting in bed Eyes: EOMI HEENT: Normocephalic, atraumatic, CV: Regular rate and rhythm without murmur RESPIRATORY: No respiratory distress. Clear to auscultation bilaterally. Abdomen: Soft and nontender, no rebound or guarding MUSCULOSKELETAl: Moves all extremities, no clubbing cyanosis or edema Back: No midline lumbar tenderness to palpation or step-off, tender to palpation over right paravertebral muscles L3-5 , pain increased with forward flexion NEURO: Awake and alert. Following commands, speech normal, no focal deficits, muscle strength 5 out of 5 bilateral lower extremities, bilateral patellar reflex 2+ SKIN:: Warm, dry. Normal Color no rash or lesions Course Course Emergency Course: Cussed with the patient states did not take her blood pressure medicine this morning states that he has at home and will take it as soon as he returns home he denies any chest pain or shortness of breath Discussed with patient results of workup and diagnosis. Discussed need for follow-up with primary care, proper use of medication, and reasons to return to the emergency department. Patient understands and agrees to current treatment plan Vital Signs Vital signs: Vital Signs Temperature 98.5 F 08/03/21 10:08 Pulse Rate 74 08/03/21 10:08 Respiratory Rate 16 08/03/21 10:08 Blood Pressure 204/110 H 08/03/21 10:08 Pulse Oximetry 100 08/03/21 10:08 Temperature 98.5 F 08/03/21 10:08 Pulse Rate 74 08/03/21 10:08 Respiratory Rate 16 08/03/21 10:08 Blood Pressure 204/110 H 08/03/21 10:08 Pulse Oximetry 100 08/03/21 10:08 MDM - Back Pain/Injury MDM Narrative Medical decision making narrative: Patient?s pain is positional and localized to back without signs of cord compression or cauda equina
[2021-08-03] MEDS: IBUPROFEN 600 MG TABLET PO (10:32)
[2021-08-03] MEDS: predniSONE 20 MG TABLET 60 MG PO (10:33)
[2021-08-03] MEDS: CYCLOBENZAPRINE HCL 10 MG TABLET PO (10:33)
== END 2021-08-03 10:40 | disposition home or self-care (01) ==
PROVIDERS: Emergency Provider Emergency Medicine
DX: M54.50 Low back pain, unspecified (principal); I12.9 Hypertensive chronic kidney disease with stage 1 through stage 4 chronic kidney disease, or unspecified chronic kidney disease; N18.9 Chronic kidney disease, unspecified; F17.210 Nicotine dependence, cigarettes, uncomplicated
CPT/HCPCS: 99283; A9270; J7512

== ENCOUNTER 2021-10-09 22:09 | Emergency (ER) | payer BC, SELFPAY ==
--- NOTE | ~2021-10-09 | XR_ITS ---
EXAMINATION: XR hand LT min 3V DATE: 10/09/2021 22:22 INDICATION: Gout presenting with left hand pain and stiffness TECHNIQUE: Posteroanterior, oblique and lateral views of the left hand were obtained. COMPARISON: None. FINDINGS: 2 mm ulnar minus variance. Alignment is otherwise normal. No acute fracture. Mild osteoarthritis at t he fifth distal interphalangeal joint with prominent dorsal osteophyte versus old healed fracture at the dorsal base of the distal phalanx. Remaining joint spaces are relatively preserved. No erosions. Mild soft tissue swelling at the dorsal aspect of the carpus. IMPRESSION: 1. No acute osseous abnormality. Reviewed, dictated and finalized at location A.
[2021-10-09 22:11] VITALS: BP 236/110; PULSE 85; RESP 16; TEMP 37.1; O2SAT 96
[2021-10-10 00:09] VITALS: BP 254/106; PULSE 61; RESP 16; O2SAT 100
--- NOTE | 2021-10-10 00:51 | ED.EXTPRO ---
HPI - Extremity Problem General Chief complaint: Extremity Problem,Nontraumatic Stated complaint: left hand, gout? Time Seen by Provider: 10/10/21 00:16 History of Present Illness HPI Narrative: Patient is a 46-year-old male with a history of high blood pressure, gout, CKD who presents emergency department for evaluation of left hand swelling and pain for the past 5 hours. Patient states the pain came on gradually, but has increased in severity. It is associated with hyperalgesia, and states it feels similar to gout exacerbations that he usually gets in his toe. Denies relief after ibuprofen and muscle relaxer. Patient has history of high blood pressure, he was admitted here for 10 days when his gout was diagnosed due to elevated rates up to the 260s systolic. Patient states that he has been taking 3 blood pressure medication since then, but he is unable to tell me the name, and also unable to tell me who is prescribing that medication. He denies any headaches, visual changes, chest pain, shortness of breath, and his only symptom today is pain. Related Data Home Medications Medication Instructions Recorded Confirmed atorvastatin 08/03/21 hydrochlorothiazide 08/03/21 Allergies Allergy/AdvReac Type Severity Reaction Status Date / Time No Known Allergies Allergy Verified 08/03/21 10:13 Review of Systems Review of Systems: Gen: Denies fevers or chills Eyes: Denies eye pain or visual change ENT: Denies congestion Respiratory: Denies shortness of breath or cough CV: Denies chest pain or palpitations GI: Denies abdominal pain nausea, emesis or diarrhea denies burning, urgency, frequency or hematuria Musculoskeletal: Reports left hand pain. Denies back pain or muscle pain Neuro: Denies numbness, tingling, weakness or focal weakness Skin: Denies rash Except as documented, all other systems reviewed and negative All systems reviewed & are unremarkable except as noted in HPI and below PMFSH Past Medical History Medical History Abnormal results of kidney function studies Chronic kidney disease (CKD) Hypertension Family History Family History Mother Hypertension Social History Social History Smoking packs per day: 1 Smoking cigarettes per day: 20.0 Years smoked: 15 Smoking pack-years: 15.00 Smoking status: Current every day smoker Alcohol intake: never Substance use: never Gender identity (if verbalized by the patient): Male Sexual Orientation (if Verbalized by the Patient): Straight or Heterosexual Spiritual care concerns: No Exam Narrative: APPEARANCE: Well appearing, no pain in distress, well-nourished. Head normocephalic and atraumatic. EYES: PERRLA/EOMI, conjunctivae clear NOSE: No nasal drainage EARS: External ear normal in appearance THROAT: Oropharynx is clear. Mucous membranes are moist. NECK: Supple. No adenopathy, no masses. RESPIRATORY: Airway patent, respirations nonlabored. Clear to auscultation bilaterally, no rales, rhonchi, wheezing. CARDIOVASCULAR: Regular rate and rhythm without murmurs, rubs, or gallops. ABDOMINAL: Normoactive bowel sounds. Soft, nontender, nondistended. No rebound tenderness or guarding. MUSCULOSKELETAL: Dorsum of left wrist has approximately 2 cm area of swelling and tenderness to palpation. He is exquisitely tender to palpation, and reports pain with flexion of his fingers. Area of pain is somewhat warm to touch. Extremities are warm and well-perfused.No edema. NEURO: Normal speech. No focal neurologic deficits. SKIN:: Skin is warm and dry. No rashes. PSYCHIATRIC: Normal affect/mood. Course Vital Signs Vital signs: Vital Signs Temperature 98.8 F 10/09/21 22:11 Pulse Rate 85 10/09/21 22:11 Respiratory Rate 16 10/09/21 22:11 Blood Pressure 236/110 H 10/09/21
[2021-10-10] MEDS: HYDROcodone/acetaminophen (*CRX) 5-325 MG TABLET 1 TAB PO (01:16)
[2021-10-10 01:34] LABS: Basophils Absolute Auto 0.1 K/mm3 (0.0-0.1); Basophils Percent Auto 0.5 % (0.2-1.2); Eosinophils Absolute Auto 0.1 K/mm3 (0-0.3); Eosinophils Percent Auto 0.9 % (0-4.4); Hematocrit 44.4 % (42.0-52.0); Hemoglobin 15.3 g/dL (14.0-18.0); Immature Granulocyte Absolute 0.04 K/mm3 (0.00-0.031); Immature Granulocyte Percent A 0.4 % (0-0.5); Lymphocytes Absolute Auto 1.71 K/mm3 (0.9-3.2); Lymphocytes Percent Auto 17.2 % (18.3-44.2); Mean Corpuscular HGB Conc 34.5 g/dl (32-36); Mean Corpuscular Hemoglobin 32.5 pg (26-34); Mean Corpuscular Volume 94.3 fl (80-100); Mean Platelet Volume 11.1 fl (7.4-10.4); Monocytes Absolute Auto 0.6 K/mm3 (0.1-0.6); Monocytes Percent Auto 5.9 % (2.6-8.5); Neutrophils Absolute Auto 7.4 K/mm3 (1.3-6.7); Neutrophils Percent Auto 75.1 % (45.5-73.1); Platelet Count Result 211 k/mm3 (150-375); Red Blood Count 4.71 M/mm3 (4.6-6.20); Red Cell Distribution Width 13.7 % (11.5-14.5); White Blood Count 9.9 K/mm3 (4.5-10.0)
[2021-10-10 01:43] LABS: Alanine Aminotransferase 21 U/L (4-50); Albumin Level 4.6 g/dL (3.5-5.1); Alkaline Phosphatase 81 U/L (38-126); Anion Gap 9 mmol/L (8-16); Aspartate Amino Transferase 30 U/L (17-59); Bilirubin,Total 0.3 mg/dL (0.2-1.3); Blood Urea Nitrogen 35 mg/dL (9-20); Calcium 9.4 mg/dL (8.4-10.2); Carbon Dioxide 24 mmol/L (22-30); Chloride 105 mmol/L (98-107); Estimated CRCL calculation 43 ml/min; Estimated Glomerular Filt Rate 31; Glucose 137 mg/dL (65-110); Potassium 3.4 mmol/L (3.4-5.0); Sodium 138 mmol/L (137-145)
[2021-10-10] MEDS: predniSONE 20 MG TABLET PO (02:23)
[2021-10-10 02:30] VITALS: BP 242/133; PULSE 63; RESP 18; O2SAT 98
--- NOTE | 2021-10-10 03:58 | PC.NURSE ---
Pt offered hospitalization for severe hypertension and pain control in his hand. Pt denies hospitalization at this time. Risks of leaving discussed w/ pt by ED PAULA. Pt wishes to leave AMA at this time. AMA paperwork has been signed and pt understands the risks. Pt ambulatory on leaving with steady gait.
== END 2021-10-10 04:00 | disposition left against medical advice (07) ==
PROVIDERS: Physician Assistant; Emergency Provider Emergency Medicine
DX: I12.9 Hypertensive chronic kidney disease with stage 1 through stage 4 chronic kidney disease, or unspecified chronic kidney disease (principal); M25.542 Pain in joints of left hand; N18.9 Chronic kidney disease, unspecified; F17.210 Nicotine dependence, cigarettes, uncomplicated
CPT/HCPCS: 36415; 73130; 80053; 85025; 99283; A9270; J7512

== ENCOUNTER 2022-05-02 14:13 | Emergency (ER) | payer BC, SELFPAY ==
[2022-05-02] VITALS (18 sets, daily range): BP systolic 186–234; BP diastolic 103–126; PULSE 63–97; RESP 14–29; TEMP 36.7; O2SAT 96–100
--- NOTE | ~2022-05-02 | XR_ITS ---
EXAMINATION: XR chest 2V DATE: 05/02/2022 14:48 INDICATION: Shortness of breath. Chest pain. TECHNIQUE: Frontal and lateral views of the chest were obtained. COMPARISON: Chest 2 views 10/24/2020 FINDINGS: There is no pneumonia, pleural effusion, or pneumothorax. The heart size is normal. IMPRESSION: 1. No acute cardiopulmonary disease. Reviewed, dictated and finalized at location A. EE SUPERVISOR
--- NOTE | 2022-05-02 14:20 | ECG_ITS ---
Measurements Intervals [place] Rate: 65 P: 63 RI: 180 QRS: -34 QRSD: 110 T: 175 QT: 422 QTc: 440 Interpretive Statements SINUS RHYTHM WITH SINUS ARRHYTHMIA LEFT AXIS DEVIATION POSSIBLE LEFT ATRIAL ENLARGEMENT LEFT VENTRICULAR HYPERTROPHY AND ST-T CHANGE CANNOT RULE OUT SEPTAL INFARCT, AGE INDETERMINATE ST-T WAVE ABNORMALITY IN LATERAL LEADS- CONSIDER ISCHEMIA ABNORMAL ECG COMPARED TO ECG 10/24/2020 23:03:30 SINUS ARRHYTHMIA NOW PRESENT LEFT-AXIS DEVIATION NOW PRESENT ST-T WAVE ABNORMALITY NOW PRESENT Electronically Signed On 05-02-2022 14:30:35 WEEKEND RECEPTIONIST by Ford Reis D.O.
[2022-05-02 14:44] LABS: Eosinophils Absolute Auto 0.1 K/mm3 (0-0.3); Eosinophils Percent Auto 2.9 % (0-4.4); Hematocrit 45.6 % (42.0-52.0); Immature Granulocyte Absolute 0.01 K/mm3 (0.00-0.031); Immature Granulocyte Percent A 0.2 % (0-0.5); Lymphocytes Absolute Auto 1.34 K/mm3 (0.9-3.2); Lymphocytes Percent Auto 32.8 % (18.3-44.2); Mean Corpuscular HGB Conc 35.1 g/dl (32-36); Mean Corpuscular Hemoglobin 32.7 pg (26-34); Mean Corpuscular Volume 93.1 fl (80-100); Monocytes Absolute Auto 0.9 K/mm3 (0.1-0.6); Monocytes Percent Auto 22.5 % (2.6-8.5); Neutrophils Absolute Auto 1.7 K/mm3 (1.3-6.7); Neutrophils Percent Auto 40.6 % (45.5-73.1); Platelet Count Result 157 k/mm3 (150-375); Red Cell Distribution Width 13.9 % (11.5-14.5); White Blood Count 4.1 K/mm3 (4.5-10.0)
[2022-05-02 14:52] LABS: Sodium 135 mmol/L (137-145)
[2022-05-02 14:54] LABS: INR 1.1
[2022-05-02 14:55] LABS: Alanine Aminotransferase 18 U/L (6-50); Albumin Level 4.4 g/dL (3.5-5.1); Alkaline Phosphatase 78 U/L (38-126); Anion Gap 5 mmol/L (8-16); Aspartate Amino Transferase 26 U/L (17-59); Bilirubin,Total 0.6 mg/dL (0.2-1.3); Blood Urea Nitrogen 25 mg/dL (9-20); Carbon Dioxide 21 mmol/L (22-30); Chloride 109 mmol/L (98-107); Estimated CRCL calculation 41 ml/min; Estimated Glomerular Filt Rate 30; Glucose 104 mg/dL (65-110); Partial Thromboplastin Time 32.8 SECONDS (22.3-36.8)
[2022-05-02 15:09] LABS: NT Pro B Type Natriuretic Pept 2840 pg/mL (5-100); Troponin I 0.061 ng/mL (0.000-0.034)
--- NOTE | 2022-05-02 16:06 | ED.GENADULT ---
HPI - General Adult General Chief complaint: Recheck/Abnormal Lab/Rx Stated complaint: flu sx, high BP Time Seen by Provider: 05/02/22 15:12 History of Present Illness HPI narrative: 46-year-old male presenting to the emergency department for evaluation of cough congestion, flulike symptoms. Upon arrival to the emergency department patient's blood pressure was found to be 234/120. Patient does have a history of hypertensive urgency and states he has not been taking his medications for the last 2 months. Patient normally takes nifedipine 30 mg, atorvastatin 20 mg, and HCTZ 25 mg. Related Data Home Medications Medication Instructions Recorded Confirmed atorvastatin 20 mg tablet 08/03/21 hydrochlorothiazide 25 mg tablet 08/03/21 Allergies Allergy/AdvReac Type Severity Reaction Status Date / Time No Known Allergies Allergy Verified 05/02/22 14:29 Review of Systems Review of Systems: CONSTITUTIONAL: Subjective fever EYES: Denies visual changes, redness, or discharge. ENT: Denies rhinorrhea, congestion, sore throat, or otalgia. CARDIOVASCULAR: Denies chest pain, palpitations, or edema. RESPIRATORY: Shortness of breath GASTROINTESTINAL: Denies abdominal pain, nausea, vomiting, or diarrhea. GENITOURINARY: Denies dysuria or hematuria. SKIN: Denies rash or itching. MUSCULOSKELETAL: Denies back pain, joint pain, or myalgia. NEUROLOGIC: Denies headache, numbness, or weakness. PSYCHIATRIC: Denies anxiety or depression. [facility] Past Medical History Medical History Abnormal results of kidney function studies Chronic kidney disease (CKD) Hypertension Family History Family History Mother Hypertension Social History Social History Smoking packs per day: 1 Smoking cigarettes per day: 20.0 Years smoked: 15 Smoking pack-years: 15.00 Smoking status: Current every day smoker Alcohol intake: never Substance use: never Gender identity (if verbalized by the patient): Male Sexual Orientation (if Verbalized by the Patient): Straight or Heterosexual Spiritual care concerns: No Exam Narrative: APPEARANCE: Well appearing, no pain, no distress, well-nourished. HEAD: normocephalic, atraumatic. EYES: PERRLA/EOMI, conjunctivae clear. NOSE: Normal no drainage EARS:TMS clear with good light reflex. THROAT: Pharynx clear, no exudate. NECK: Supple. No adenopathy, no masses. RESPIRATORY: Airway patent, respirations nonlabored. Clear to auscultation bilaterally, no rales, rhonchi, wheezing. CARDIOVASCULAR: Regular rate and rhythm without murmurs rubs or gallops. ABDOMINAL: Soft, nontender, nondistended, normal bowel sounds MUSCULOSKELETAL: Moves all extremities. Strength/ROM intact, No edema, No calf tenderness. NEURO: Alert. Cranial nerves II through XII intact. Grossly intact SKIN: Warm, dry. Normal Color Course Course Emergency Course: Patient's troponins were mildly elevated. Patient's blood pressure was significantly elevated. This was discussed with both the patient and family member. Patient was strongly encouraged to stay for treatment of his blood pressure. Patient declined to stay. Patient is alert oriented and verbalized awareness of the risks of refusal. Patient was allowed to sign out AMA. Patient was encouraged to return to the emergency department to complete his medical treatment. Vital Signs Vital signs: Vital Signs Temperature 98.1 F 05/02/22 14:16 Pulse Rate 69 05/02/22 14:16 Respiratory Rate 18 05/02/22 14:16 Blood Pressure 234/120 H 05/02/22 14:16 Pulse Oximetry 98 05/02/22 14:16 Oxygen Delivery Room Air 05/02/22 14:16 Temperature 98.1 F 05/02/22 14:16 Pulse Rate 96 05/02/22 18:31 Respiratory Rate 29 H 05/02/22 18:31 Blood Pressure 198/126 H 05/02/22 18:31 Pulse Oximetry 96
[2022-05-02] MEDS: niCARdipine 20 MG/200 ML 20 MG/200 ML BAG 50 MG IV CONT (16:07)
[2022-05-02] MEDS: FUROSEMIDE INJ 40 MG/4 ML VIAL IV PUSH (16:08)
[2022-05-02 17:02] LABS: Influenza A QL RT-PCR Negative (Negative); Influenza B QL RT-PCR Negative (Negative); SARS-CoV-2 RNA PCR Positive
[2022-05-02] MEDS: hydroCHLOROthiazide 25 MG TABLET PO (18:20)
[2022-05-02 18:26] LABS: Troponin I 0.071 ng/mL (0.000-0.034)
[2022-05-02] MEDS: NIFEdipine 30 MG TAB.ER.24 60 MG PO (18:32)
== END 2022-05-02 18:40 | disposition left against medical advice (07) ==
PROVIDERS: Emergency Provider Emergency Medicine
DX: U07.1 COVID-19 (principal); I12.9 Hypertensive chronic kidney disease with stage 1 through stage 4 chronic kidney disease, or unspecified chronic kidney disease; N18.9 Chronic kidney disease, unspecified; T46.5X6A Underdosing of other antihypertensive drugs, initial encounter; Z91.128 Patient's intentional underdosing of medication regimen for other reason; I51.7 Cardiomegaly; R94.31 Abnormal electrocardiogram [ECG] [EKG]
CPT/HCPCS: 36415; 71046; 80053; 83880; 84484; 85025; 85610; 85730; 87636; 93005; 96365; 96366; 96375; 99284; A9270; J1940

== ENCOUNTER 2022-08-07 16:09 | Observation (INO) | payer BC, SELFPAY ==
[2022-08-07] VITALS (20 sets, daily range): BP systolic 196–249; BP diastolic 108–144; PULSE 66–92; RESP 14–28; TEMP 36.2–37.3; O2SAT 80–99; BMI 34.4
--- NOTE | ~2022-08-07 | XR_ITS ---
XR chest 1V portable 08/07/2022 16:47 Indication: Shortness of breath and cough Procedure: AP portable chest Comparison: Comparison to multiple prior studies sequentially, with oldest reviewed study dated 12/2007. Findings: Borderline heart size. Patchy bibasilar airspace disease, right greater than left. No pleur al effusion, edema or pneumothorax. Impression: 1: Patchy bibasilar airspace disease, compatible with pneumonia. Reviewed, dictated and finalized at location B. TECHNOLOGY TECHNICIAN Impression: 1: Patchy bibasilar airspace disease, compatible with pneumonia.
--- NOTE | ~2022-08-07 | CT_ITS ---
EXAMINATION: CTA chest PE protocol DATE: 08/07/2022 17:36 INDICATION: pleuritic chest pain, elevated dimer TECHNIQUE: Computed tomography angiography (CTA) of the chest was performed with 100 mL Omnipaque-350 intravenous contrast timed to evaluate the pulmonary arteries. Coronal maximum intensity projection 3D-reconstructions were created by the technologist. The dose-length product (DLP) was 819.60 mGy-cm. Automated exposure control and iterative reconstruction technique were employed. COMPARISON: X-ray chest, same date. FINDINGS: Lung parenchyma and airways: Patchy and centrilobular nodular groundglass opacities, nodular areas of consolidation, with bronchovascular thickening and linear areas of atelectasis in the left lower lob e. Pleura: Unremarkable. Thoracic inlet, axillae and chest wall: Bilateral gynecomastia. Thoracic aorta: Normal. Mediastinum: Right hilar and subcarinal lymphadenopathy. Dilated central pulmonary arteries as can be seen with pulmonary arterial hypertension. Heart and pericardium: Cardiomegaly. Marked left ventricular hypertrophy. Coronary artery calcifications: Absent. Upper abdomen: No significant finding. Bones: No acute osseous finding. Pulmonary arteries: Study quality: Adequate. No pulmonary emboli detected. IMPRESSION: No CT evidence of acute pulmonary embolus. Left lower lobe pneumonia. Right hilar and mediastinal lym phadenopathy. Cardiomegaly with marked left ventricular hypertrophy. Reviewed, dictated and finalized at location K. ASSESSMENT ANALYST IMPRESSION: No CT evidence of acute pulmonary embolus. Left lower lobe pneumonia. Right hil ar and mediastinal lymphadenopathy. Cardiomegaly with marked left ventricular h ypertrophy.
--- NOTE | 2022-08-07 16:30 | ECG_ITS ---
Measurements Intervals [place] Rate: 78 P: 65 [place]: 188 QRS: -30 QRSD: 110 T: 169 QT: 395 QTc: 452 Interpretive Statements SINUS RHYTHM LEFT ATRIAL ENLARGEMENT [-0.15mV P-WAVE IN V1/V2] LEFT VENTRICULAR HYPERTROPHY AND ST-T CHANGE [VOLTAGE CRITERIA PLUS ST/T ABNORMALITY] COMPARED TO ECG 05/02/2022 14:23:26 NO SIGNIFICANT CHANGES Electronically Signed On 08-08-2022 11:30:04 TRIM ATTACHER by Ayan Padilla M.D.
[2022-08-07 16:49] LABS: Basophils Percent Auto 0.8 % (0.2-1.2); Eosinophils Absolute Auto 0.1 K/mm3 (0-0.3); Eosinophils Percent Auto 1.3 % (0-4.4); Hematocrit 44.4 % (42.0-52.0); Hemoglobin 15.6 g/dL (14.0-18.0); Immature Granulocyte Absolute 0.01 K/mm3 (0.00-0.031); Immature Granulocyte Percent A 0.2 % (0-0.5); Lymphocytes Absolute Auto 1.15 K/mm3 (0.9-3.2); Lymphocytes Percent Auto 21.9 % (18.3-44.2); Mean Corpuscular HGB Conc 35.1 g/dl (32-36); Mean Corpuscular Hemoglobin 32.5 pg (26-34); Mean Corpuscular Volume 92.5 fl (80-100); Mean Platelet Volume 11.8 fl (7.4-10.4); Monocytes Absolute Auto 0.7 K/mm3 (0.1-0.6); Monocytes Percent Auto 13.5 % (2.6-8.5); Neutrophils Absolute Auto 3.3 K/mm3 (1.3-6.7); Neutrophils Percent Auto 62.3 % (45.5-73.1); Platelet Count Result 157 k/mm3 (150-375); White Blood Count 5.3 K/mm3 (4.5-10.0)
--- NOTE | 2022-08-07 17:01 | ED.SOB ---
HPI - SOB/Dyspnea General Chief Complaint: Shortness of Breath/Dyspnea Stated Complaint: sob Time Seen by Provider: 08/07/22 16:51 History of Present Illness HPI Narrative: Patient is a 46-year-old male with a history of hypertension presenting with right-sided chest pain. Patient states that for the last several days he has had low-grade fevers and body aches. Today he developed right-sided chest pain that is worse with taking a deep breath. States that he has also felt intermittently short of breath. Patient states that he has not taken his blood pressure medications as he ran out several months ago and he is trying to find a new doctor. He denies any left-sided chest pain. No lightheadedness or palpitations. Denies abdominal pain, vomiting, diarrhea, leg swelling. Related Data Allergies Allergy/AdvReac Type Severity Reaction Status Date / Time azithromycin Allergy Hives Verified 08/07/22 19:13 Review of Systems Review of Systems: All systems reviewed & are unremarkable except as noted in HPI and below PMFSH Past Medical History Medical History Abnormal results of kidney function studies Chronic kidney disease (CKD) Hypertension Family History Family History Mother Hypertension Social History Social History Smoking packs per day: 1.5 Smoking cigarettes per day: 30.0 Years smoked: 30 Smoking pack-years: 45.00 Smoking status: Current every day smoker Tobacco type: cigarettes Alcohol intake: former Substance use: current Substance use type: marijuana Last use: 08/07/22 Lack of Transportation: No Lack of Food: Never True Current Housing: I Have Housing Concerned About Future Housing: No Difficulty Paying Gas/Electric Bills: No Difficulty Paying for Meds: No Currently Unemployed: No Education: High School Diploma/GED Difficulty w/ Childcare or Family Care: No Gender identity (if verbalized by the patient): Male Sexual Orientation (if Verbalized by the Patient): Straight or Heterosexual Spiritual care concerns: No Exam Narrative: GENERAL: Well-appearing, well-nourished, and in no acute distress. HEAD: Normocephalic, atraumatic. EYES: PERRLA and EOMI. ENT: Nares clear, no rhinorrhea or epistaxis. Mucous membranes moist. NECK: Supple. CHEST: Clear to auscultation. No respiratory distress. HEART: Regular rate and rhythm. No murmur heard. Normal peripheral pulses. ABDOMEN: Soft, nontender, nondistended, normal active bowel sounds. EXTREMITIES: Normal range of motion. No edema. SKIN: Warm, dry, no rash. NEURO: No focal deficits. Alert and oriented x3. PSYCH: Normal mood and affect. Course Vital Signs Vital signs: Vital Signs Temperature 99.1 F 08/07/22 16:10 Pulse Rate 92 08/07/22 16:10 Respiratory Rate 18 08/07/22 16:10 Blood Pressure 249/127 H 08/07/22 16:10 Pulse Oximetry 98 08/07/22 16:10 Oxygen Delivery Room Air 08/07/22 16:10 Temperature 97.7 F 08/08/22 08:00 Pulse Rate 85 08/08/22 12:00 Respiratory Rate 22 H 08/08/22 08:00 Blood Pressure 172/113 H 08/08/22 08:16 Pulse Oximetry 99 08/08/22 08:00 Oxygen Delivery Room Air 08/08/22 04:00 MDM - SOB/Dyspnea MDM Narrative Medical decision making narrative: Patient is a 46-year-old male presenting with pleuritic right-sided chest pain. Patient is hypertensive 230 systolic. Vitals are otherwise within normal limits. EKG per my interpretation shows normal sinus rhythm, left axis deviation, T wave inversions laterally, no ST elevations. Appears very similar to prior EKG. dimer is elevated so CTA chest was obtained which shows no PE but he does have right lower lobe pneumonia. Rocephin and azithromycin have been ordered. Blood work with elevated troponin of 0.062. Patient denies any left-sided ches
[2022-08-07 17:04] LABS: Alanine Aminotransferase 18 U/L (6-50); Albumin Level 4.4 g/dL (3.5-5.1); Alkaline Phosphatase 77 U/L (38-126); Anion Gap 5 mmol/L (8-16); Aspartate Amino Transferase 25 U/L (17-59); Bilirubin,Total 0.8 mg/dL (0.2-1.3); Blood Urea Nitrogen 22 mg/dL (9-20); Calcium 9.1 mg/dL (8.4-10.2); Carbon Dioxide 21 mmol/L (22-30); Chloride 107 mmol/L (98-107); Estimated CRCL calculation 54 ml/min; Estimated Glomerular Filt Rate 39; Glucose 96 mg/dL (65-110); Potassium 4.2 mmol/L (3.4-5.0); Sodium 133 mmol/L (137-145)
[2022-08-07 17:06] LABS: INR 1.1; Prothrombin Time 13.8 Seconds (11.1-14.7)
[2022-08-07 17:07] LABS: Partial Thromboplastin Time 31.4 SECONDS (22.3-36.8)
[2022-08-07 17:14] LABS: D Dimer 0.52 ug/mL (<0.48)
[2022-08-07] MEDS: SODIUM CHLORIDE 0.9% IV 1,000 ML 999 ML IV CONT (17:19)
[2022-08-07] MEDS: hydroCHLOROthiazide 25 MG TABLET PO (17:19)
[2022-08-07 17:21] LABS: Troponin I 0.062 ng/mL (0.000-0.034)
--- NOTE | 2022-08-07 17:21 | PC.NURSE ---
Pt to CT scan via stretcher at this time, on tele monitor.
[2022-08-07 17:29] LABS: Influenza A QL RT-PCR Negative (Negative); Influenza B QL RT-PCR Negative (Negative); RSV RNA, RT-PCR Negative (Negative); SARS-CoV-2 RNA PCR Negative
[2022-08-07] MEDS: NIFEdipine 30 MG TAB.ER.24 PO ×2 (17:36→21:36)
[2022-08-07] MEDS: LABETALOL HCL INJ 100 MG/20 ML VIAL 20 MG IV PUSH (18:29)
--- NOTE | 2022-08-07 19:11 | PC.NURSE ---
Pt c/o itching and hives noted to arm at IV site when Ezythromycin initated. IV antibiotics stopped, EDP Dr Mcarthur notified.
[2022-08-07] MEDS: diphenhydrAMINE HCl INJ 50 MG/ML VIAL 25 MG IV PUSH (19:14)
--- NOTE | 2022-08-07 19:51 | ADMGEN ---
This patient, Jason Whiteside III, was admitted to IMU Room 206-02. Patient/family oriented to hospital policies and general routines including ID bracelet, bed and alarms, visiting hours, pain management, procedures, bathroom and other care routines, personal items, smoking policy, room service/diet, and visiting hours. Information on how to activate the Rapid Response Team has been discussed. Patient/Family are encouraged to report perceived risks to care and to ask questions if they do not understand what they are told or what they should do.
--- NOTE | 2022-08-07 20:13 | PM.IMHP ---
H&P: HPI History of Present Illness Date/Time: 08/07/22 20:13 Chief Complaint: CHEST PAIN Narrative: This is a 46-year-old male with past medical history significant for hypertension, dyslipidemia, tobacco dependence, smokes 1 pack of cigarettes daily. Patient presents to the emergency room due to chest pain with inspiration, cough nonproductive of sputum, chest congestion, chills, fevers, for several days. Patient also ran out of his prescription due to insurance and has not been able to take his blood pressure medications. Pain is worse with inspiration. Feeling like flu-like symptoms upon presentation to the emergency room patient had a systolic blood pressure of 249/127. Preliminary workup was significant for a CTA of chest was reported as: FINDINGS:? Lung parenchyma and airways: Patchy and centrilobular nodular groundglass opacities, nodular areas of consolidation, with bronchovascular thickening and linear areas of atelectasis in the left lower lobe. Pleura: Unremarkable. Thoracic inlet, axillae and chest wall: Bilateral gynecomastia. Thoracic aorta: Normal. Mediastinum: Right hilar and subcarinal lymphadenopathy. Dilated central pulmonary arteries as can be seen with pulmonary arterial hypertension. Heart and pericardium: Cardiomegaly. Marked left ventricular hypertrophy. Coronary artery calcifications: Absent. Upper abdomen: No significant finding. Bones: No acute osseous finding. Pulmonary arteries: Study quality: Adequate. No pulmonary emboli detected. IMPRESSION: No CT evidence of acute pulmonary embolus. Left lower lobe pneumonia. Right hilar and mediastinal lymphadenopathy. Cardiomegaly with marked left ventricular hypertrophy. Review of Systems Review of Systems: , nonproductive cough, chest congestion, chest pain with inspiration, night sweats, fevers, chills, poor appetite. Constitutional: Constitutional: Reports body ache(s), Reports chills, Reports fatigue, Reports fever(s), Reports lethargy, Reports malaise, Reports night sweats, Reports poor appetite and Reports weakness Eyes: Eyes: Denies change in vision ENT: Denies dysphagia, Denies vertigo, Denies dizziness and Denies odynophagia Cardiovascular: Cardiovascular: Denies chest pain, Denies claudication, Denies leg edema, Denies lightheadedness, Denies radiating jaw, neck or arm pain, Denies palpitations and Denies dyspnea on exertion Respiratory: Respiratory: Denies change in phlegm color, Reports chest congestion, Reports cough, Denies excessive phlegm production, Reports pain on inspiration and Denies dyspnea Gastrointestinal: Gastrointestinal: Denies abdominal pain, Denies melena, Denies coffee ground emesis, Denies dyspepsia, Denies heartburn, Denies diarrhea, Denies nausea and Denies vomiting Genitourinary: Genitourinary: Reports no additional male genitourinary complaints and Reports as per HPI Musculoskeletal: Musculoskeletal: Reports myalgias Integumentary/Breasts: Skin/Breast: Denies rash Neurologic: Denies confusion, Denies vertigo, Denies dizziness, Denies focal weakness and Denies Sensory deficit (Neuro) Psychiatric: Psychiatric: Reports no additional psychiatric complaints and Reports as per HPI Endocrine: Endocrine: Denies cold intolerance, Denies fatigue, Denies flushing, Denies heat intolerance, Denies polyphagia, Denies polydipsia and Denies palpitations Hematologic/Lymphatic: Hematologic/Lymphatic: Reports no additional hematologic/lymphatic complaints and Reports as per HPI Allergic/Immunologic: Allergic/Immunologic: Reports no additional allergic/immunologic complaints and Reports as per HPI PMFSH Past Medical History Medical History Abnormal results of kidney function studies Chronic kidney disease (CKD) Hypertension Family History Family History Mother Hypertension Social History Social Histo
[2022-08-07] MEDS: LABETALOL HCL INJ 100 MG/20 ML VIAL 10 MG IV PUSH (20:32)
[2022-08-08] VITALS (9 sets, daily range): BP systolic 172–215; BP diastolic 110–119; PULSE 70–93; RESP 16–22; TEMP 36.5–37.2; O2SAT 97–99
--- NOTE | 2022-08-08 | ECHO_ITS ---
Patient Info Name: Jason Whiteside Age: 46 years : 1975 Gender: Male Ht: 73 in Wt: 261 lbs BSA: 2.51 m2 HR: 80 bpm BP: 184 / 112 mmHg Heart Rhythm: Sinus Rhythm Exam Date: 08/08/2022 8:16 AM Exam Location: [facility] Patient Status: Inpatient Admit Date: 08/07/2022 Staff Ordering Physician: Keith Anderson MD Bulb Sorter: Higinio Durbin, SHANELL, RT Attending Provider: Abby Mesa DO Referring Physician: Justin CORREIA; Exam Type: CA echo doppler color flow Study Info Indications I11.0 - Hypertensive heart disease with heart failure Complete two-dimensional, color flow and Doppler transthoracic echocardiogram is performed. Strain analysis performed. Summary 1. Complete two-dimensional, color flow and Doppler transthoracic echocardiogram is performed. 2. Left ventricular chamber dimension is normal. 3. Left ventricular systolic function is moderately reduced, estimated at 35-40%. 4. There is severely increased left ventricular wall thickness. 5. The left ventricular diastolic function is grade I diastolic dysfunction. 6. Global longitudinal strain is abnormal at -6 %. Strain pattern shows some apical sparing, consider amyloid cardiomyopathy if clinically indicated. 7. Right ventricular systolic function is normal. 8. The aortic root size at the sinus of Valsalva is dilated. 9. Normal inferior vena cava with >50% collapse upon inspiration consistent with normal right atrial pressure, 3 mmHg. 10. There is trivial pericardial effusion. 11. No significant valvular disease. Left Ventricle Left ventricular chamber dimension is normal. Left ventricular systolic function is moderately reduced, estimated at 35-40%. There is severely increased left ventricular wall thickness. The left ventricular diastolic function is grade I diastolic dysfunction. Global longitudinal strain is abnormal at -6 %. Strain pattern shows some apical sparing, consider amyloid cardiomyopathy if clinically indicated. Right Ventricle Right ventricular chamber dimension is normal. Right ventricular systolic function is normal. Left Atria Left atrial chamber dimension is normal. Right Atria Right atrial chamber dimension is normal. Atrial Septum Intact interatrial septum visualized by color flow imaging. Aortic Valve The aortic valve is trileaflet. There is mild aortic valve sclerosis. There is no aortic valve stenosis. There is no aortic valve regurgitation. Pulmonic Valve The pulmonic valve is not well visualized. Mitral Valve The mitral valve has normal leaflets. There is no mitral valve stenosis. There is trace mitral valve regurgitation. Tricuspid Valve There is no significant tricuspid valve stenosis. There is trace tricuspid valve regurgitation. Pericardium/Pleural There is trivial pericardial effusion. Inferior Vena Cava Normal inferior vena cava with >50% collapse upon inspiration consistent with normal right atrial pressure, 3 mmHg. Aorta The aortic root size at the sinus of Valsalva is dilated. Left Ventricular Outflow Tract Name Value Normal LVOT 2D LVOT Diameter 2.1 cm LVOT Doppler
[2022-08-08 01:17] LABS: Troponin I 0.074 ng/mL (0.000-0.034)
[2022-08-08] MEDS: hydrALAZINE HCL 20 MG/ML VIAL 10 MG IV PUSH (01:30)
[2022-08-08] MEDS: NIFEdipine 30 MG TAB.ER.24 60 MG PO (08:40)
[2022-08-08] MEDS: hydroCHLOROthiazide 25 MG TABLET PO (08:40)
[2022-08-08] MEDS: ATORVASTATIN 20 MG TABLET PO (08:40)
[2022-08-08] MEDS: ACETAMINOPHEN 325 MG TABLET 650 MG PO (08:54)
--- NOTE | 2022-08-08 11:27 | PM.DS ---
DS: Admitting Diagnosis Discharge Date July 31, 2022 Admitting Diagnosis Pneumonia DS: Discharge Diagnosis Discharge Diagnosis (1) Poorly-controlled hypertension: Code(s): I10 - Essential (primary) hypertension Status: Acute (2) LLL pneumonia: Code(s): J18.9 - Pneumonia, unspecified organism Status: Acute Assessment and Plan: Patient started on Rocephin and Zithromax Blood cultures in progress (3) Tobacco abuse: Code(s): Z72.0 - Tobacco use Status: Acute Assessment and Plan: Nicotine patch as needed (4) CKD (chronic kidney disease): Code(s): N18.9 - Chronic kidney disease, unspecified Status: Acute Assessment and Plan: Continue to monitor BUN and creatinine Daily BMP (5) Cardiomyopathy: Code(s): I42.9 - Cardiomyopathy, unspecified Status: Acute Assessment and Plan: Continue to monitor Echocardiogram in a.m. (6) HFrEF (heart failure with reduced ejection fraction): Code(s): I50.20 - Unspecified systolic (congestive) heart failure Status: Acute Assessment and Plan: Patient appears euvolemic on physical exam Daily intake and output Daily weights DS: Summary Hospital Course Hospital Course: Patient was admitted for pneumonia and hypertension. Patient reports his blood pressure is exceptionally high at home anyway. He just recently got set up with a primary care physician is post follow-up with the this week. He also notes he ran out of his medication. Otherwise he was also found to have pneumonia and we discharged on Levaquin Time Spent with Patient Time attestation: Total time spent providing and/or coordinating discharge services: Exam Narrative: Patient is sitting by the edge of the bed Const: General: comfortable, no acute distress, well developed, alert, awake, average body habitus, overweight and other (Apprehensive); No confusion Nutritional Appearance: average body habitus and overweight Orientation/consciousness: patient oriented x3 and No confusion HENMT: Head: normal to inspection, normocephalic and atraumatic Ears: hearing grossly normal bilaterally Face/Nose/Sinus: normal facial exam Face and sinus: normal facial exam Eyes: General: appearance normal, both eyes and all related structures Pupils: Equal, round and reactive pupils present EOM: EOMs intact bilaterally Neck: Neck: full ROM, no lymphadenopathy and no JVD Thyroid: thyroid normal Lymphatic: no lymphadenopathy noted Resp: Effort & Inspection: normal respiratory effort and able to speak in complete sentences Auscultation: clear to auscultation bilaterally Cardio: Jugular venous distension: no JVD Rate: regular rate Rhythm: regular rhythm Heart sounds: S1 normal heart sound present and S2 normal heart sound present : General: Yes deferred Skin: Rashes: no rashes Wounds: no wounds Neuro: General: patient oriented x3, CN's II-XI intact bilaterally and No confusion Cranial nerves: Yes CN's II-XII intact bilaterally and Yes Equal, round and reactive pupils present Cognition (Neuro): normal cognition Speech: normal speech Gait exam (Neuro): Normal gait present Motor exam (neuro): 5/5 motor strength present throughout Sensory Exam: No Sensory deficit (Neuro) Extrem: General: normal to inspection, full ROM, no joint enlargement and no pedal edema DS: Data Data Completed and Pending Labs on day of discharge: Labs from last 24 hours 08/08/22 08/07/22 08/07/22 00:34 16:46 16:41 WBC RBC Hgb Hct MCV MCH MCHC RDW Plt Count MPV Immature Gran % (Auto) Neut % (Auto) Lymph % (Auto) [place] % (Auto) Eos % (Auto) Baso % (Auto) Lymph # (Auto) [place] # (Auto) Eos # (Auto) Baso # (Auto) Abs Immat Gran (auto) Absolute Neuts (auto) Absolute Nucleated RBC Nucleated RBC % PT 13.8 INR 1.1 APTT 31.4 D-Dimer 0.52 H Sodium Po
== END 2022-08-08 12:57 | disposition home or self-care (01) ==
LOC: ANHED 17:04 → ANHIMU 20:17
PROVIDERS: Admitting Provider Internal Medicine; Emergency Provider Emergency Medicine; PCP Family Medicine; Visit Provider Chiropractor
DX: I13.0 Hypertensive heart and chronic kidney disease with heart failure and stage 1 through stage 4 chronic kidney disease, or unspecified chronic kidney disease (principal); I50.20 Unspecified systolic (congestive) heart failure; N18.9 Chronic kidney disease, unspecified; J18.9 Pneumonia, unspecified organism; I42.9 Cardiomyopathy, unspecified; R94.4 Abnormal results of kidney function studies; R77.8 Other specified abnormalities of plasma proteins; Z20.822 Contact with and (suspected) exposure to COVID-19; F17.210 Nicotine dependence, cigarettes, uncomplicated; F12.90 Cannabis use, unspecified, uncomplicated; Z82.49 Family history of ischemic heart disease and other diseases of the circulatory system
CPT/HCPCS: 36415; 71045; 71275; 80053; 84484; 85025; 85380; 85610; 85730; 87040; 87637; 93005; 93306; 96365; 96366; 96367; 96375; 96376; 99285; A9270; G0378; J0131; J0360; J0456; J0696; J1200; J1956; J7030; Q9967

== ENCOUNTER 2022-11-18 17:17 | Inpatient (IN) | payer BC, SELFPAY ==
--- NOTE | ~2022-11-18 | XR_ITS ---
EXAMINATION: XR chest 1V portable INDICATION: Right-sided weakness TECHNIQUE: Portable AP chest at 2110 hours COMPARISON: 08/07/2022 FINDINGS: There are patchy interstitial and airspace opacities throughout the lungs. Cardiomegaly is noted. No pleural effusion or pneumothorax. IMPRESSION: 1. Diffuse lung disease, consistent with pulmonary edema and/or pneumonia. Reviewed, dictated and finalized at location F.
--- NOTE | ~2022-11-18 | CT_ITS ---
EXAMINATION: CTA brain carotid DATE: 11/19/2022 09:34 CDT INDICATION: Right-sided weakness. TECHNIQUE: Computed tomographic angiography (CTA) of the head was performed without and with 100 mL O mnipaque-350 intravenous contrast. CTA of the neck was performed with intravenous contrast. The dose- length product was 2101.92 mGy-cm. Maximum intensity projection and volume rendered 3D-reconstruction s were created by the technologist on a separate workstation. Automated exposure control and iterativ e reconstruction technique were employed. COMPARISON: CT dated 06/14/2011. FINDINGS: HEAD CTA: Normal brain parenchymal volume. No acute intracranial hemorrhage, infarction, mass or mass effect. No ventriculomegaly or midline shift. Basilar cisterns are patent. Normal noel-white differe ntiation. Paranasal sinuses and mastoids are pneumatized. The anterior, middle and posterior cerebral arteries are symmetric and patent without significant stenosis, occlusion or aneurysm. Dominant left vertebral artery. Paranasal sinuses and mastoids are pneumatized. No depressed skull fractures. NECK CTA: There is high-grade stenosis of the left vertebral artery at the origin. The left vertebral artery remains diminutive throughout. The origin of the right vertebral artery is unremarkable. No s ignificant stenosis of the internal carotid arteries. No dissection or occlusion. Lung parenchyma is unremarkable. There is 0% stenosis of the proximal right internal carotid artery relative to normal distal artery l umen diameter (NASCET criteria). There is 0% stenosis of the proximal left internal carotid artery re lative to normal distal artery lumen diameter. IMPRESSION: 1. 0% stenosis of the proximal right internal carotid artery relative to normal distal artery lumen d iameter (NASCET criteria). 2. 0% stenosis of the proximal left internal carotid artery relative to normal distal artery lumen di ameter. 3: High-grade stenosis origin of the left vertebral artery which remains diminutive throughout its c ourse. 4: No acute intracranial abnormality. Reviewed, dictated and finalized at location A. IMPRESSION: 1. 0% stenosis of the proximal right internal carotid artery relative to normal distal artery lumen diameter (NASCET criteria). 2. 0% stenosis of the proximal left internal carotid artery relative to normal distal artery lumen diameter. 3: High-grade stenosis origin of the left vertebral artery which remains dimin utive throughout its course. 4: No acute intracranial abnormality.
--- NOTE | ~2022-11-18 | MR_ITS ---
EXAMINATION: MR brain/brain stem wo con DATE: 11/19/2022 07:43 INDICATION: CVA TECHNIQUE: Magnetic resonance imaging (MRI) of the brain and brainstem was performed without intraven ous contrast. Sequences included sagittal and axial T1-weighted SE, axial diffusion-weighted FS SE, a xial T2*-weighted GRE, axial T2-weighted FLAIR Propeller, and axial T2-weighted Propeller. Apparent d iffusion coefficient (ADC) maps were created. COMPARISON: CTA dated 11/18/2022. FINDINGS: There is a focal acute infarction of the left paracentral maame. There is a chronic infarcti on of the right maame. No ventriculomegaly or midline shift. There are scattered mild periventricular and subcortical white matter changes, most likely related to small vessel ischemic disease (microangi opathy). There are several foci of susceptibility artifact involving the right cerebellum, maame and d eep noel matter nuclei, consistent with chronic microhemorrhage. Midline sagittal images demonstrate a normal corpus callosum and craniovertebral junction. Orbits are symmetric without disconjugate gaze . Paranasal sinuses and mastoids are pneumatized. IMPRESSION: 1. Acute infarction of the left paracentral maame. 2: Multifocal chronic microhemorrhages involving the right cerebellum, maame and deep noel matter. 3: Chronic age-related findings. Reviewed, dictated and finalized at location A.
[2022-11-18 17:59] VITALS: BP 157/96; PULSE 81; RESP 18; TEMP 36.5; O2SAT 99
--- NOTE | 2022-11-18 21:02 | ECG_ITS ---
Measurements Intervals [place] Heart Rate: 73 P: 66 AK: 202 QRS: -16 QRSD: 122 T: 173 QT: 408 QTc: 452 Interpretive Statements SINUS RHYTHM LEFT VENTRICULAR HYPERTROPHY AND ST-T CHANGE CANNOT RULE OUT LATERAL ISCHEMIA NO SIGNIFICANT CHANGES Electronically Signed On 11-19-2022 8:36:41 CDT by Kirti Fuentes M.D.
[2022-11-18] MEDS: SODIUM CHLORIDE 0.9% IV 1,000 ML 999 ML IV CONT (21:34)
[2022-11-18 21:39] LABS: Basophils Percent Auto 0.6 % (0.2-1.2); Eosinophils Absolute Auto 0.2 K/mm3 (0-0.3); Eosinophils Percent Auto 2.9 % (0-4.4); Hematocrit 40.5 % (42.0-52.0); Immature Granulocyte Absolute 0.02 K/mm3 (0.00-0.031); Immature Granulocyte Percent A 0.3 % (0-0.5); Lymphocytes Absolute Auto 2.31 K/mm3 (0.9-3.2); Lymphocytes Percent Auto 33.6 % (18.3-44.2); Mean Corpuscular HGB Conc 34.6 g/dl (32-36); Mean Corpuscular Hemoglobin 31.7 pg (26-34); Mean Corpuscular Volume 91.8 fl (80-100); Mean Platelet Volume 11.7 fl (7.4-10.4); Monocytes Absolute Auto 0.6 K/mm3 (0.1-0.6); Neutrophils Absolute Auto 3.8 K/mm3 (1.3-6.7); Neutrophils Percent Auto 54.6 % (45.5-73.1); Platelet Count Result 174 k/mm3 (150-375); Red Blood Count 4.41 M/mm3 (4.6-6.20); Red Cell Distribution Width 14.6 % (11.5-14.5); White Blood Count 6.9 K/mm3 (4.5-10.0)
[2022-11-18 21:50] LABS: Alanine Aminotransferase 32 U/L (6-50); Albumin Level 4.4 g/dL (3.5-5.1); Alkaline Phosphatase 64 U/L (38-126); Anion Gap 8 mmol/L (8-16); Aspartate Amino Transferase 33 U/L (17-59); Bilirubin,Total 0.7 mg/dL (0.2-1.3); Blood Urea Nitrogen 33 mg/dL (9-20); Calcium 9.2 mg/dL (8.4-10.2); Carbon Dioxide 23 mmol/L (22-30); Chloride 110 mmol/L (98-107); Estimated Glomerular Filt Rate 36; Glucose 118 mg/dL (65-110); INR 1.1; Magnesium 2.1 mg/dL (1.6-2.3); Potassium 4.5 mmol/L (3.4-5.0); Prothrombin Time 14.6 Seconds (11.1-14.7); Sodium 141 mmol/L (137-145)
[2022-11-18 21:51] LABS: Partial Thromboplastin Time 35.5 SECONDS (22.3-36.8)
[2022-11-18 21:53] LABS: Lactic Acid Reflex 1.1 mmol/L (0.7-2.0)
--- NOTE | 2022-11-18 21:56 | ED.GENADULT ---
HPI - General Adult General Chief complaint: Neuro Symptoms/Deficit Stated complaint: neurological symptoms Time Seen by Provider: 11/18/22 20:35 History of Present Illness HPI narrative: Patient 47-year-old gentleman who presents the emergency department with chief complaint of right-sided weakness. 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 The patient reports no pain but does report that he is got some facial droop and reports that his right hand is not as strong and reports that his right leg starts to drag whenever he walks. Related Data Allergies Allergy/AdvReac Type Severity Reaction Status Date / Time azithromycin Allergy Hives Verified 08/07/22 19:13 Review of Systems Review of Systems: A 10 system review of systems was completed on the patient and is negative except for what is stated in the HPI. Nursing and ancillary documentation was reviewed. [facility] Past Medical History Medical History Abnormal results of kidney function studies Chronic kidney disease (CKD) Hypertension Family History Family History Mother Hypertension Social History Social History Smoking packs per day: 1.5 Smoking cigarettes per day: 30.0 Years smoked: 30 Smoking pack-years: 45.00 Smoking status: Current every day smoker Tobacco type: cigarettes Alcohol intake: former Substance use: current Substance use type: marijuana Last use: 08/07/22 Lack of Transportation: No Lack of Food: Never True Current Housing: I Have Housing Concerned About Future Housing: No Difficulty Paying Gas/Electric Bills: No Difficulty Paying for Meds: No Currently Unemployed: No Education: High School Diploma/GED Difficulty w/ Childcare or Family Care: No Gender identity (if verbalized by the patient): Male Sexual Orientation (if Verbalized by the Patient): Straight or Heterosexual Spiritual care concerns: No Exam Narrative: GENERAL: Well-appearing, well-nourished, and in no acute distress. HEAD: Normocephalic, atraumatic. EYES: PERRLA and EOMI. ENT: Nares clear, no rhinorrhea or epistaxis. Mucous membranes moist. NECK: Supple. CHEST: Clear to auscultation. No respiratory distress. HEART: Regular rate and rhythm. No murmur heard. Normal peripheral pulses. ABDOMEN: Soft, nontender, nondistended, normal active bowel sounds. EXTREMITIES: Normal range of motion. No edema. SKIN: Warm, dry, no rash. NEURO: Right-sided facial droop and asymmetry right upper extremity has decreased glazier metal furniture strength compared to the left, sensation is intact. Alert and oriented x3. PSYCH: Normal mood and affect. Course Vital Signs Vital signs: Vital Signs Temperature 36.5 C 11/18/22 17:59 Pulse Rate 81 11/18/22 17:59 Respiratory Rate 18 11/18/22 17:59 Blood Pressure 157/96 H 11/18/22 17:59 Pulse Oximetry 99 11/18/22 17:59 Oxygen Delivery Room Air 11/18/22 17:59 Temperature 36.5 C 11/18/22 17:59 Pulse Rate 81 11/18/22 17:59 Respiratory Rate 18 11/18/22 17:59 Blood Pressure 157/96 H 11/18/22 17:59 Pulse Oximetry 99 11/18/22 17:59 Oxygen Delivery Room Air 11/18/22 17:59 Medical Decision Making MDM Narrative Medical decision making narrative: Differential diagnosis includes CVA, TIA, arrhythmia, electrolyte abnormality, hypertensive urgency, intracrania
[2022-11-18 22:09] LABS: Troponin I 0.036 ng/mL (0.000-0.034)
[2022-11-18 22:35] VITALS: BP 160/120; PULSE 69; RESP 20; O2SAT 95
[2022-11-18 22:45] LABS: Appearance Urine Clear (Clear); Bacteria Urine None Seen /hpf; Bilirubin Urine Negative (Negative); Blood Urine Negative (Negative); Color Urine Yellow (Yellow); Glucose Urine UA Negative (Negative); Ketones Urine Negative (Negative); Leukocyte Esterase Ur Negative LEU/UL (Negative); Nitrate Urine Negative (Negative); Non Pathogenic Casts 0-2; Protein Urine 1+ mg/dL (Negative); RBC Urine 0-2 /hpf (0-2); Specific Grav Ur 1.018 (1.001-1.035); Squamous Epithelial Cell Urine None seen /hpf (Few); Urobilinogen Urine 0.2 mg/dL (<2.0); WBC Urine 0-5 /hpf; pH Urine 6.5 (5.0-9.0)
[2022-11-18 22:59] LABS: Barbiturate Screen Urine Negative (Negative); Benzodiazepines Screen Urine Negative (Negative)
[2022-11-18 23:01] VITALS: BP 193/107; PULSE 64; RESP 19; O2SAT 100
[2022-11-18 23:02] LABS: Add Urine Microscopic? YES
[2022-11-18 23:04] LABS: Amphetamine Screen Urine Negative (Negative); Cannabinoid Screen Urine Positive (Negative); Cocaine Screen Urine Negative (Negative); Methadone Screen Urine Negative (Negative); Opiate Screen Urine Negative (Negative); Phencyclidine Screen Urine Negative (Negative)
[2022-11-18 23:31] VITALS: BP 203/113; PULSE 68; RESP 18; O2SAT 100
[2022-11-19] VITALS (22 sets, daily range): BP systolic 156–208; BP diastolic 85–117; PULSE 45–88; RESP 18–20; TEMP 35.7–36.5; O2SAT 99–100; BMI 33.7
[2022-11-19 01:01] LABS: Troponin I 0.036 ng/mL (0.000-0.034)
--- NOTE | 2022-11-19 01:15 | ADMGEN ---
This patient, Jason Whiteside III, was admitted to IMU Room 213-01. Patient/family oriented to hospital policies and general routines including ID bracelet, bed and alarms, visiting hours, pain management, procedures, bathroom and other care routines, personal items, smoking policy, room service/diet, and visiting hours. Information on how to activate the Rapid Response Team has been discussed. Patient/Family are encouraged to report perceived risks to care and to ask questions if they do not understand what they are told or what they should do.
--- NOTE | 2022-11-19 03:23 | PM.IMHP ---
H&P: HPI History of Present Illness Date/Time: 11/18/22 23:00 Chief Complaint: Right-sided weakness Narrative: 47-year-old male with a complex past medical history including hyperlipidemia, obesity, chronically uncontrolled hypertension resulting complications of cardiomyopathy and chronic kidney disease stage III who presented to the ER with right-sided weakness. The patient reports the symptoms started in the morning or early afternoon of the . His girlfriend at bedside to help provide some of the history with the patient's permission. She states that she noticed when she got off worked that the patient seemed to be weaker with the right hand and was not quite as steady on his feet. 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 Any was having to concentrate a little bit more to pickle cutter is right foot. His girlfriend encouraged him to come in on that day but the patient decided not to. And the patient has chronically uncontrolled hypertension in the reports that the patient's systolic blood pressures are usually in the 160s to 180s range if not higher. On initial arrival to the ER the patient's blood pressures were in the upper 150s 160s over 90s to 120s. The last time he went to his primary care physician's office his blood pressure was 150. They reported that this was actually quite low for the patient. The patient girlfriend stated that she thought that the patient seemed to have little bit of facial droop on that day 2. But she managed to convince the patient to come into the ER today when the patient was actually having to drag his right leg around whenever he walked. Today the patient was not even grabbing the steering wheel with his right hand despite being right handed. Patient denies any headache or vision changes that her acute. Patient denies any prior history of stroke or neuro changes such as this. He has been having some progressive blurring of his vision a thinks that he needs to go see an eye doctor for some glasses. He does snore quite loud. His snoring disruptive girlfriend sleep. The patient does report symptoms of daytime fatigue and sleepiness. Patient has markedly crowded posterior oropharynx on exam. He denies ever being tested for sleep apnea. He denies any nausea vomiting or changes in appetite. He has not been having any lower extremity swelling or orthopnea. He denies any chest pain or palpitations. He has not had any upper respiratory symptoms. He has developed new onset of hiccups. He reports that he rarely to never has hiccups but has had hiccups almost constantly for the last 24 hours. He has been had some associated heartburn that he thinks is due to the hiccups. Patient's girlfriend reports that she felt as if the patient was having intermittent episodes of slurred speech. The patient does have some facial droop pulse speaking. Speech seems very deliberate. He denies any difficulty swallowing coughing or choking while eating. Noncontrast CT of the head was performed in the ER which demonstrated no acute process. CT of the head and neck performed in the ER did demonstrate 80% stenosis of the left vertebral artery. Patient had recent echocardiogram July 2022 that demonstrated systolic and diastolic dysfunction with EF of 35-40 with severely increased left ventricular wall thickness. Patient has noted mild bradycardia and in the ER. He did have increased bradycardia when he arrived to the intermediate floor but this was more severe when the patient was asleep. Review of Systems Review of Systems: 12 systems were reviewed with pertinent positives and negatives per HPI. Except as documented in the HPI, all other systems were reviewed and are negative. [facility] Past Medical History Medical History (Updated 11/19/22 @ 04:21 by Mag Mojica DO) Bilateral renal cysts Cardiomyopathy Chronic kidney disease (CKD) Stage III Combined systolic and diastolic con
[2022-11-19 06:04] LABS: Hematocrit 40.6 % (42.0-52.0); Mean Corpuscular HGB Conc 34.5 g/dl (32-36); Mean Corpuscular Volume 92.7 fl (80-100); Mean Platelet Volume 11.6 fl (7.4-10.4); Platelet Count Result 163 k/mm3 (150-375); Red Blood Count 4.38 M/mm3 (4.6-6.20); Red Cell Distribution Width 14.6 % (11.5-14.5); White Blood Count 5.3 K/mm3 (4.5-10.0)
[2022-11-19 06:19] LABS: Anion Gap 7 mmol/L (8-16); Blood Urea Nitrogen 27 mg/dL (9-20); Calcium 8.8 mg/dL (8.4-10.2); Carbon Dioxide 19 mmol/L (22-30); Chloride 111 mmol/L (98-107); Cholesterol 162 mg/dL (0-200); Estimated CRCL calculation 53 ml/min; Estimated Glomerular Filt Rate 41; Glucose 98 mg/dL (65-110); HDL Direct 33 mg/dL; Potassium 4.3 mmol/L (3.4-5.0); Sodium 137 mmol/L (137-145); Triglycerides 150 mg/dL (<150)
[2022-11-19 06:31] LABS: LDL Cholesterol Direct 83 mg/dL
[2022-11-19] MEDS: hydrALAZINE HCL 20 MG/ML VIAL 10 MG IV PUSH ×2 (07:57→11:00)
[2022-11-19] MEDS: lisinopriL 20 MG TABLET PO (10:03)
[2022-11-19] MEDS: ATORVASTATIN 20 MG TABLET PO (10:03)
[2022-11-19] MEDS: FAMOTIDINE 20 MG TABLET PO ×2 (10:03→20:03)
[2022-11-19] MEDS: ASPIRIN 325 MG TABLET PO (10:04)
[2022-11-19] MEDS: NIFEdipine 30 MG TAB.ER.24 60 MG PO ×2 (10:04→20:03)
--- NOTE | 2022-11-19 11:34 | PCPTNOTE ---
Attempted to see patient, but with speech therapy. Will try again in afternoon.
--- NOTE | 2022-11-19 12:55 | WPDNEURCNPN ---
Assessment and Plan Assessment and plan (1) Acute CVA (cerebrovascular accident): Code(s): I63.9 - Cerebral infarction, unspecified Status: Acute (2) Poorly-controlled hypertension: Code(s): I10 - Essential (primary) hypertension Status: Acute (3) CKD (chronic kidney disease): Code(s): N18.9 - Chronic kidney disease, unspecified Status: Acute (4) HFrEF (heart failure with reduced ejection fraction): Code(s): I50.20 - Unspecified systolic (congestive) heart failure Status: Acute (5) Tobacco abuse: Code(s): Z72.0 - Tobacco use Status: Acute Plan Jason Whiteside III is a 47 year old male with a history of HLD, obesity, HTN, cardiomyopathy, CKD who presented due to right sided weakness. 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 Seems like etiology may be a combination of left vertebral stenosis and uncontrolled hypertension. - Agree with permissive hypertension for the first 24 hours, but maintain BP <220/120 - After 24hrs recommend very slow correction of BP given the significant vertebral stenosis - Aspirin has been started already, once BP is better controlled, consider adding Plavix 75mg x 3 months (patient has chronic microhemorrhages noted on MRI in the brainstem area, so will definitely need to wait until blood pressure is better controlled due to risk of worsening hemorrhage) - Increase Lipitor to 40mg daily (goal LDL <70). - Repeat surface echocardiogram to rule out clot - Discussed importance of smoking cessation Consult date: 11/19/22 Reason for consult: Acute stroke HPI: Jason Whiteside III is a 47 year old male with a history of HLD, obesity, HTN, cardiomyopathy, CKD who presented due to right sided weakness. Patient's symptoms started on 11/17 morning. 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 There were also concerns that the right side of his face was drooping as well. When patient arrived to the ED on the , his blood pressure was in the 150-160s. In the ED he had a CT head which did not show any acute process. CTA brain/carotid showed 80% stenosis of the left vertebral artery. He did not receive tPA due to being outside the window for intervention. He has had an MRI brain which showed left pontine stroke as well as multifocal chronic microhemorrhages involving the right cerebellum, maame, and deep noel matter. He last had an echocardiogram in July 2022, that showed systolic and diastolic dysfunction with EF 35-40%. His LDL from this admission was 83. He takes Lipitor 20mg daily. I do not see any blood thinners on his medication list. EKG showed normal sinus rhythm. Patient's blood pressure has been in the 200's, since allowing for permissive hypertension. Patient smokes 1.5 ppd. He denies any early family history of clotting disorders, cardiac issues, or stroke. Review of Systems Constitutional: Constitutional: Denies chills, Denies fever(s) and Denies weight loss Eyes: Eyes: Denies diplopia and Denies loss of vision ENT: Denies dizziness, Denies hearing loss and Denies tinnitus Cardiovascular: Cardiovascular: Denies chest pain, Denies syncope and Denies dyspnea Respiratory: Respiratory: Denies cough, Denies dyspnea and Denies wheezing Gastrointestinal: Gastrointestinal: Denies abdominal pain, Denies change in bowel habits and Denies vomiting Genitourinary: Genitourinary: Denies urinary incontinence Musculoskeletal: Musculoskeletal: Denies arthralgias and Denies joint swelling Integumentary/Breasts: Skin/Breast: Denies new lesions and Denies rash Neurologic: Reports as per HPI, Denies dizziness, Denies syncope and Denies loss of vision Psychiatric: Psychiatric: Denies anxiety and Denies depression Endocrine: Endocrine: Denies cold intolerance and Denies heat intolerance Hematologic/Lymphatic: Hematologic/Lymphatic: Denies easy bleeding and Denies easy bruising Allergic/Immunol
--- NOTE | 2022-11-19 12:59 | PCSTNOTE ---
Bedside swallowing evaluation completed. Patient sat at edge of bed. Oral peripheral examination results within normal limits, except for trace right sided labial asymmetry at rest. Labial and lingual range of motion, strength, and control within functional limits. Speech intelligibility epic radiant analyst to be 100% to unfamiliar listener. Trials of thin liquid by straw, and solid texture foods were given (bite of hamburger, potato chip). Patient demonstrated no difficulty with chewing or swallowing. No signs of aspiration present. Please note that silent aspiration cannot be ruled out at bedside and can only be evaluated with a modified barium swallow study (MBSS). No further speech therapy is recommended. Regular texture diet with thin liquids recommended. Thank you for the referral of this patient.
--- NOTE | 2022-11-19 13:24 | P.PN_ITS ---
Progress Note: A&P Assessment and Plan (1) Acute CVA (cerebrovascular accident): Code(s): I63.9 - Cerebral infarction, unspecified Status: Acute (2) Elevated troponin: Code(s): R77.8 - Other specified abnormalities of plasma proteins Status: Acute (3) Poorly-controlled hypertension: Code(s): I10 - Essential (primary) hypertension Status: Acute (4) Chronic kidney disease (CKD): Qualifiers: Chronic kidney disease stage: stage 3 (moderate) Chronic kidney disease stage 3 subtype: stage 3b (GFR 30-44) Qualified Code(s): N18.32 - Chronic kidney disease, stage 3b Code(s): N18.9 - Chronic kidney disease, unspecified Status: Acute Plan The patient's presented with CVA symptoms but presented late in onset of symptoms with greater than 24 hour hours from for symptoms. Patient received full-dose aspirin in the ER. NIH stroke scale was 5 at time my evaluation. Differential does also include possible malignant hypertension with hypertensive encephalopathy but seems less likely given patient does have noted vertebral artery stenosis on the contralateral side related to the patient's neurologic symptoms. Will allow for permissive hypertension due to the acute nature the patient's neurologic changes. Patient has been admitted to IMU for close monitoring neuro checks q.4 hours. The patient was given full dose of aspirin in the ER. Will continue aspirin therapy daily with patient may benefit from Plavix instead given his vertebral stenosis. Will defer decision to Neurology. PT and OT as well as speech therapy have been consulted for evaluation and treatment. Patient will be placed on fall precautions and ambulate with assistance. MRI I of brain and brainstem is been ordered for a.m.. No need to repeat echocardiogram as patient had repeat recent echo in July. Given the use of anti-platelet therapy will check CBC in a.m.. Patient's blood pressures elevated due to acute CVA and complicated by chronically uncontrolled hypertension. Will provide cautious drop in blood pressure no more than 10 20% in the next 24-48 hours. Will continue patient's home antihypertensives. The patient does have chronically elevated troponins that are stable in completely flat. No evidence of cardiac ischemia due to acute coronary event. His elevated troponin is due to chronically elevated blood pressures and subsequent hypertensive cardiomyopathy. However given evidence of stenosis the patient's vertebral arteries some underlying chronic coronary disease cannot be excluded. Patient is not having acute symptoms. No need for acute cardiac intervention at this time. Patient does have obesity and has multiple symptoms suggestive of obstructive sleep apnea. The patient would benefit from outpatient polysomnogram. Will order [facility] while hospitalized. The patient has chronic kidney disease due to his uncontrolled hypertension. Creatinine is stable. Will continue monitor urine output. Will repeat electrolyte panel in a.m.. 11/19/2022 interval history: 47-year-old male with history of hypertension presented with complaint of right extremity weakness CTA scan of the head showed High-grade stenosis origin of the left vertebral artery which r emains diminutive throughout its course. And MRI of the brain showed: 1. Acute infarction of the left paracentral maame. 2: Multifocal chronic microhemorrhages involving the right cerebellum, maame and deep noel matter. 3:? Chronic age-related findings. Seen by Neurology recommended to continue permissive hypertension for 24 hours and may lower the blood pressure very slowly and will monitor, patient was
[2022-11-20] VITALS (15 sets, daily range): BP systolic 167–192; BP diastolic 97–108; PULSE 63–96; RESP 16–20; TEMP 36.2–36.9; O2SAT 99–100
--- NOTE | 2022-11-20 | ECHO_ITS ---
Patient Info Name: Jason Whiteside Age: 47 years : 1975 Gender: Male Ht: 73 in Wt: 255 lbs BSA: 2.48 m2 HR: 79 bpm BP: 167 / 97 mmHg Heart Rhythm: Sinus Rhythm Technical Quality: Good Exam Date: 11/20/2022 10:40 AM Exam Location: [facility] Patient Status: Inpatient Admit Date: 11/19/2022 Staff Ordering Physician: Cristiana Galindo MD Senior Maintenance Machinist: Jessica Beckman RDCS Attending Provider: Mag Mojica DO Exam Type: CA echo doppler color flow Study Info Indications - accelerated htn Complete two-dimensional, color flow and Doppler transthoracic echocardiogram is performed. Summary 1. Complete two-dimensional, color flow and Doppler transthoracic echocardiogram is performed. 2. Severe concentric left ventricular hypertrophy with normal systolic function and diastolic noncompliance. 3. Normal atrial dimensions. 4. Trivial amount of MR. 5. Compared to echocardiogram done in July of this year nothing has changed. Left Ventricle Left ventricular chamber dimension is normal. Left ventricular systolic function is normal, estimated at 60-65%. There is severe concentric increased left ventricular wall thickness. The left ventricular diastolic function is grade I diastolic dysfunction. Right Ventricle Right ventricular chamber dimension is normal. Left Atria Left atrial chamber dimension is normal. Right Atria Right atrial chamber dimension is normal. Aortic Valve The aortic valve is normal. There is no aortic valve sclerosis. Pulmonic Valve The pulmonic valve is normal. Mitral Valve The mitral valve has normal leaflets. There is trace mitral valve regurgitation. Tricuspid Valve The tricuspid valve leaflets are normal. Pericardium/Pleural The pericardium appears normal. Aorta The aortic root size at the sinus of Valsalva is normal. Left Ventricular Outflow Tract Name Value Normal LVOT 2D LVOT Diameter 2.4 cm LVOT Doppler LVOT Peak Gradient 7 mmHg LVOT Mean Gradient 3 mmHg LVOT VTI 19 cm LVOT VTI/AV VTI Ratio 1.2 LVOT Stroke Volume 83 ml LVOT CO 5.2 l/min LVOT CI 2.1 l/min/m2 Pulmonic Valve Name Value Normal RVOT Doppler RVOT Peak Gradient 2 mmHg PV Doppler PV Peak Gradient 4 mmHg Mitral Valve Name Value Normal MV Doppler MV Decel [place] 229 cm/s2 MV PHT 58 ms M
[2022-11-20] MEDS: ASPIRIN 325 MG TABLET PO (09:21)
[2022-11-20] MEDS: FAMOTIDINE 20 MG TABLET PO ×2 (09:21→21:06)
[2022-11-20] MEDS: lisinopriL 20 MG TABLET PO (09:21)
[2022-11-20] MEDS: ATORVASTATIN 40 MG TABLET PO (09:21)
[2022-11-20] MEDS: CYCLOBENZAPRINE HCL 10 MG TABLET PO (09:21)
[2022-11-20] MEDS: NIFEdipine 30 MG TAB.ER.24 60 MG PO ×2 (09:22→21:06)
[2022-11-20] MEDS: hydroCHLOROthiazide 25 MG TABLET PO (11:19)
[2022-11-20] MEDS: hydrALAZINE HCL 20 MG/ML VIAL 10 MG IV PUSH (13:02)
--- NOTE | 2022-11-20 15:27 | WPDPN ---
Progress Note: A&P Assessment and Plan (1) Acute CVA (cerebrovascular accident): Code(s): I63.9 - Cerebral infarction, unspecified Status: Acute (2) Elevated troponin: Code(s): R77.8 - Other specified abnormalities of plasma proteins Status: Acute (3) Poorly-controlled hypertension: Code(s): I10 - Essential (primary) hypertension Status: Acute (4) Chronic kidney disease (CKD): Qualifiers: Chronic kidney disease stage: stage 3 (moderate) Chronic kidney disease stage 3 subtype: stage 3b (GFR 30-44) Qualified Code(s): N18.32 - Chronic kidney disease, stage 3b Code(s): N18.9 - Chronic kidney disease, unspecified Status: Acute Plan The patient's presented with CVA symptoms but presented late in onset of symptoms with greater than 24 hour hours from for symptoms. Patient received full-dose aspirin in the ER. NIH stroke scale was 5 at time my evaluation. Differential does also include possible malignant hypertension with hypertensive encephalopathy but seems less likely given patient does have noted vertebral artery stenosis on the contralateral side related to the patient's neurologic symptoms. Will allow for permissive hypertension due to the acute nature the patient's neurologic changes. Patient has been admitted to IMU for close monitoring neuro checks q.4 hours. The patient was given full dose of aspirin in the ER. Will continue aspirin therapy daily with patient may benefit from Plavix instead given his vertebral stenosis. Will defer decision to Neurology. PT and OT as well as speech therapy have been consulted for evaluation and treatment. Patient will be placed on fall precautions and ambulate with assistance. MRI I of brain and brainstem is been ordered for a.m.. No need to repeat echocardiogram as patient had repeat recent echo in July. Given the use of anti-platelet therapy will check CBC in a.m.. Patient's blood pressures elevated due to acute CVA and complicated by chronically uncontrolled hypertension. Will provide cautious drop in blood pressure no more than 10 20% in the next 24-48 hours. Will continue patient's home antihypertensives. The patient does have chronically elevated troponins that are stable in completely flat. No evidence of cardiac ischemia due to acute coronary event. His elevated troponin is due to chronically elevated blood pressures and subsequent hypertensive cardiomyopathy. However given evidence of stenosis the patient's vertebral arteries some underlying chronic coronary disease cannot be excluded. Patient is not having acute symptoms. No need for acute cardiac intervention at this time. Patient does have obesity and has multiple symptoms suggestive of obstructive sleep apnea. The patient would benefit from outpatient polysomnogram. Will order [facility] while hospitalized. The patient has chronic kidney disease due to his uncontrolled hypertension. Creatinine is stable. Will continue monitor urine output. Will repeat electrolyte panel in a.m.. 11/20/2022 interval history: 47-year-old male with history of hypertension presented with complaint of right extremity weakness CTA scan of the head showed High-grade stenosis origin of the left vertebral artery which remains diminutive throughout its course. And MRI of the brain showed: 1. Acute infarction of the left paracentral maame. 2: Multifocal chronic microhemorrhages involving the right cerebellum, maame and deep noel matter. 3:? Chronic age-related findings. Seen by Neurology recommended to continue permissive hypertension for 24 hours and may lower the blood pressure very slowly and will monitor, patient was started on aspirin, once the blood pressure is more controlled will start the patient on Plavix for 3 months as recommended by the Neurology, to further evaluate will do the cardiac echo with bubble study, patient was seen by he speech therapy and patient has no deficit and
[2022-11-20] MEDS: ACETAMINOPHEN 325 MG TABLET 650 MG PO (18:30)
[2022-11-20] MEDS: DOCUSATE SODIUM 100 MG CAPSULE PO (21:14)
[2022-11-21] VITALS (9 sets, daily range): BP systolic 150–169; BP diastolic 93–107; PULSE 57–91; RESP 16–20; TEMP 36.6–37.1; O2SAT 98–100
[2022-11-21] MEDS: NIFEdipine 30 MG TAB.ER.24 60 MG PO (10:07)
[2022-11-21] MEDS: ASPIRIN 325 MG TABLET PO (10:07)
[2022-11-21] MEDS: lisinopriL 20 MG TABLET PO (10:08)
[2022-11-21] MEDS: ATORVASTATIN 40 MG TABLET PO (10:08)
[2022-11-21] MEDS: CYCLOBENZAPRINE HCL 10 MG TABLET PO (10:08)
[2022-11-21] MEDS: FAMOTIDINE 20 MG TABLET PO (10:08)
[2022-11-21] MEDS: hydroCHLOROthiazide 25 MG TABLET PO (10:08)
--- NOTE | 2022-11-21 11:00 | P.DS_ITS ---
DS: Admitting Diagnosis Discharge Date 11/21/2022 Admitting Diagnosis Right-sided weakness DS: Discharge Diagnosis Discharge Diagnosis (1) Acute CVA (cerebrovascular accident): Code(s): I63.9 - Cerebral infarction, unspecified Status: Acute (2) Elevated troponin: Code(s): R77.8 - Other specified abnormalities of plasma proteins Status: Acute (3) Poorly-controlled hypertension: Code(s): I10 - Essential (primary) hypertension Status: Acute (4) Chronic kidney disease (CKD): Qualifiers: Chronic kidney disease stage: stage 3 (moderate) Chronic kidney disease stage 3 subtype: stage 3b (GFR 30-44) Qualified Code(s): N18.32 - Chronic kidney disease, stage 3b Code(s): N18.9 - Chronic kidney disease, unspecified Status: Acute Plan The patient's presented with CVA symptoms but presented late in onset of symptoms with greater than 24 hour hours from for symptoms. Patient received full-dose aspirin in the ER. NIH stroke scale was 5 at time my evaluation. Differential does also include possible malignant hypertension with hypertensive encephalopathy but seems less likely given patient does have noted vertebral artery stenosis on the contralateral side related to the patient's neurologic symptoms. Will allow for permissive hypertension due to the acute nature the patient's neurologic changes. Patient has been admitted to IMU for close monitoring neuro checks q.4 hours. The patient was given full dose of aspirin in the ER. Will continue aspirin therapy daily with patient may benefit from Plavix instead given his vertebral stenosis. Will defer decision to Neurology. PT and OT as well as speech therapy have been consulted for evaluation and treatment. Patient will be placed on fall precautions and ambulate with assistance. MRI I of brain and brainstem is been ordered for a.m.. No need to repeat echocardiogram as patient had repeat recent echo in July. Given the use of anti-platelet therapy will check CBC in a.m.. Patient's blood pressures elevated due to acute CVA and complicated by chronically uncontrolled hypertension. Will provide cautious drop in blood pressure no more than 10 20% in the next 24-48 hours. Will continue patient's home antihypertensives. The patient does have chronically elevated troponins that are stable in completely flat. No evidence of cardiac ischemia due to acute coronary event. His elevated troponin is due to chronically elevated blood pressures and subsequent hypertensive cardiomyopathy. However given evidence of stenosis the patient's vertebral arteries some underlying chronic coronary disease cannot be excluded. Patient is not having acute symptoms. No need for acute cardiac intervention at this time. Patient does have obesity and has multiple symptoms suggestive of obstructive sleep apnea. The patient would benefit from outpatient polysomnogram. Will order [facility] while hospitalized. The patient has chronic kidney disease due to his uncontrolled hypertension. Creatinine is stable. Will continue monitor urine output. Will repeat electrolyte panel in a.m.. 11/20/2022 interval history: 47-year-old male with history of hypertension presented with complaint of right extremity weakness CTA scan of the head showed High-grade stenosis origin of the left vertebral artery which remains diminutive throughout its course. And MRI of the brain showed: 1. Acute infarction of the left paracentral maame. 2: Multifocal chronic microhemorrhages involving the right cerebellum, maame and deep noel matter. 3:? Chronic age-related findings. Seen by Neurology recommended to cont
== END 2022-11-21 13:23 | disposition home or self-care (01) | DRG 45 ==
LOC: ANHED 23:15 → ANHIMU 11-19 00:55
PROVIDERS: Admitting Provider Internal Medicine; Emergency Provider Emergency Medicine; PCP Family Medicine; Visit Provider Family Medicine
DX: I63.212 Cerebral infarction due to unspecified occlusion or stenosis of left vertebral artery (principal); I13.0 Hypertensive heart and chronic kidney disease with heart failure and stage 1 through stage 4 chronic kidney disease, or unspecified chronic kidney disease; I50.42 Chronic combined systolic (congestive) and diastolic (congestive) heart failure; G81.91 Hemiplegia, unspecified affecting right dominant side; I43 Cardiomyopathy in diseases classified elsewhere; R29.705 NIHSS score 5; E78.5 Hyperlipidemia, unspecified; E66.9 Obesity, unspecified; F17.210 Nicotine dependence, cigarettes, uncomplicated; G47.33 Obstructive sleep apnea (adult) (pediatric); M10.9 Gout, unspecified; N18.32 Chronic kidney disease, stage 3b; R29.810 Facial weakness; R77.8 Other specified abnormalities of plasma proteins; R06.6 Hiccough; Z68.33 Body mass index [BMI] 33.0-33.9, adult
CPT/HCPCS: 36415; 70496; 70498; 70551; 71045; 80048; 80053; 80061; 80307; 81001; 83605; 83735; 84484; 85025; 85027; 85610; 85730; 92610; 93005; 93306; 94762; 96360; 97110; 97112; 97116; 97161; 97165; 97530; 99285; A9270; G0378; G0379; J0360; J7030; Q9967